=== PATIENT | male | born 1990 | race Caucasian/White ===

== ENCOUNTER 2020-10-12 23:41 | Emergency (ER) | payer MEDICARE, SELFPAY ==
[2020-10-12 23:50] VITALS: BP 139/86; PULSE 89; RESP 15; TEMP 36.4; O2SAT 98; BMI 27.3
--- NOTE | 2020-10-13 00:18 | USCV_ITS ---
Rakesh Mart Age: 30 Gender: M : 1990 Exam Date: 10/13/2020 01:20 Ordering Phys: Rohit Paulino DO Technologist: Exam Location: [facility] [place] Indication: LT LEG PAIN AND SWELING HISTORY: Lower extremity pain. History of deep venous thrombosis. PROCEDURES: Venous duplex imaging was performed in only the left lower extremity. The following venous structures were evaluated: common femoral vein, profunda vein, proximal portion of the greater saphenous vein, superficial femoral vein, and the popliteal vein. In addition, the posterior tibial and peroneal trunk were evaluated. FINDINGS: Evidence of acute partial deep vein thrombosis in the left popliteal vein with normal flow dynamics. Popliteal thrombus is mobile and partially contracted from the wall. Evidence of acute partial deep vein thrombosis in the left peroneal vein with normal flow dynamics. CONCLUSIONS Acute left lower extremity deep venous thrombosis, popliteal and peroneal veins. Dr. Judith Song DO (Electronically Signed) Final Date: 13 October 2020 07:52 S
--- NOTE | 2020-10-13 02:13 | W.ED.EXTPRO ---
HPI - Extremity Problem General: Chief complaint: Extremity Injury, Lower Stated complaint: left leg pain Time Seen by Provider: 10/13/20 01:35 History of Present Illness: HPI Narrative: Patient is a 30-year-old male comes to the ED with left calf pain. Patient has a history of DVT in right leg. Patient denies any injury or trauma to cause left calf pain. Symptoms started today. Patient says he was supposed to be on Eliquis but has stopped taking it. Denies any chest pain, shortness of breath, wheezing or hemoptysis. Associated symptoms: Deny chest pain, fever(s) or rash Review of Systems Const: Denies: fever(s), chills or fatigue Eyes: Denies: change in vision or eye discomfort ENMT: Denies: throat pain, odynophagia, nasal discharge or nasal congestion Card: Denies: chest pain, palpitations, edema, swelling of feet/ankles, dyspnea on exertion or orthopnea Resp: Denies: dyspnea, productive cough or non-productive cough GI: Denies: abdominal pain, nausea, vomiting, diarrhea, constipation or hematochezia : Denies: flank pain, difficulty urinating, dysuria or hematuria Musc: Reports: extremity pain (Left calf pain.); Denies: neck pain, back pain or extremity swelling Skin/Breast: Denies: rash or new lesions Neuro: Denies: headache(s), numbness in extremities or weakness in extremities Physical Exam Const: COMMON NORMALS: no acute distress, patient oriented x3 and alert GENERAL APPEARANCE: cooperative and comfortable HENMT: COMMON NORMALS: normocephalic HEAD & SCALP: normocephalic MOUTH: Normal oral and palatal mucosa present THROAT: posterior oropharynx normal and uvula midline Neck/C-Spine: COMMON NORMALS: supple GENERAL: Yes normal visual inspection Resp: COMMON NORMALS: normal respiratory effort, No retractions, No use of accessory muscles and clear to auscultation bilaterally AUSCULTATION: clear to auscultation bilaterally Cardio: COMMON NORMALS: regular rate, regular rhythm, S1 normal heart sound present, S2 normal heart sound present, No gallops present (Cardio), No clicks present (Cardio), No murmurs present (Cardio) and Peripheral pulses 2+ throughout RATE: regular rate RHYTHM: regular rhythm HEART SOUNDS: S1 normal heart sound present and S2 normal heart sound present PERIPHERAL PULSES: Peripheral pulses 2+ throughout GI: COMMON NORMALS: Normal to inspection, nondistended, normoactive bowel sounds present, Soft to palpation, non-tender and no masses PALPATION: Yes Soft to palpation : COMMON NORMALS: Yes no CVA tenderness BLADDER/KIDNEY EXAM: Yes no CVA tenderness Back/Pelvis: COMMON NORMALS: no CVA tenderness Extremity: COMMON NORMALS: no pedal edema GENERAL: Yes normal exam except as noted and Yes calf tenderness (left) Neuro: COMMON NORMALS: patient oriented x3 and moves all extremities SENSORIUM/ORIENTATION: Yes alert Skin: GENERAL SKIN EXAM: dry skin Course Vital Signs: Vital signs: Vital Signs Temperature 97.5 F L 10/12/20 23:50 Pulse Rate 89 10/13/20 02:49 Respiratory Rate 16 10/13/20 02:49 Blood Pressure 132/84 10/13/20 02:49 Pulse Oximetry 98 10/13/20 02:49 MDM - Extremity (Nontraumatic) MDM Narrative: Medical decision making narrative: Patient is a 30-year-old male comes to the ED with nontraumatic left calf pain. He has a history of DVT and blood clots. Denies any shortness of breath, chest pain or hemoptysis. Exam shows left calf tenderness. Ultrasound venous duplex of left lower extremity showed a DVT in the popliteal vein. Patient was given a dose of Xarelto here in the ED and sent home with a prescription for Xarelto. He was also given prescription card at discharge which will help with drugs cost. He was told to follow-up with his PCP in the next 7 to 10 days for reevaluation. Return to ED precautions given. Patient understood and agreed with plan. Imaging Data^: US Vascular: Attestation: I personally reviewed and interpreted this imaging study as follows: Radiologist's impression: Ultrasound venous duplex of left lower extremity?prelim report?DVT involving popliteal vein. Discharge Plan Discharge Patient Disposition: Home Clinical Impression: DVT (deep venous thrombosis) Qualifiers: DVT location: lower extremity Affected thrombotic vein of extremity: popliteal Chronicity: acute Laterality: left Qualified Code(s): I82.432 - Acute embolism and thrombosis of left popliteal vein Condition: Stable Prescriptions: New rivaroxaban 15 mg tablet 15 mg PO BID 21 Days Qty: 42 RF: 0 Discharge Orders: Discharge ED (Routine); Ordered 10/13/20 Ordered By: Davidson Champagne Discharge Diet: Regular Discharge Activity: Resume usual activity Patient Instructions: Deep Venous Thrombosis (ED) Activity Restrictions/Additional Instructions: Follow-up with medical provider as directed in 7 to 10 days for reevaluation and further management of blood thinner medication. Take medications as prescribed. Return to the ER or your medical provider if condition worsens. Please read and understand discharge instructions. If any questions, please ask. Coding Level of Care Code ED Case Therapist for [facility] Fwd Exam Comprehensive
[2020-10-13] MEDS: rivaroxaban 10 mg Tablet 15 MG PO (02:43)
[2020-10-13] MEDS: acetaminophen 500 mg Tablet 1000 MG PO (02:44)
[2020-10-13 02:49] VITALS: BP 132/84; PULSE 89; RESP 16; O2SAT 98
== END 2020-10-13 02:50 | disposition home or self-care (01) ==
PROVIDERS: Emergency Provider Physician Assistant
DX: I82.432 Acute embolism and thrombosis of left popliteal vein (principal)
CPT/HCPCS: 93971; 99283

== ENCOUNTER 2020-10-16 08:34 | Emergency (ER) | payer MEDICARE, SELFPAY ==
[2020-10-16 08:35] VITALS: BP 130/90; PULSE 69; RESP 17; TEMP 36.9; O2SAT 100; BMI 30.4
--- NOTE | 2020-10-16 08:44 | W.ED.CHESTPA ---
HPI - Chest Pain General: Chief Complaint: Chest Pain Stated Complaint: CHEST PAIN Time Seen by Provider: 10/16/20 08:44 History of Present Illness: HPI narrative: 30-year-old male presents to the emergency room with complaint of chest discomfort. Began having chest pain early this morning. He started to walk to the hospital he got very tired and weak and laid down in addition slept. He has previously had DVTs he was here 3 days ago venous duplex lower extremity showed a left DVT he was given a coupon for Xarelto however he has not filled it and states he lost that he has had no anticoagulants since then. States the chest discomfort is worse with palpation and with deep breathing. Patient was given a coupon for Xarelto as prescribed at his last ER visit but he states he has not taken it he lost coupon has not gotten it filled. complaint: chest pain Pertinent past history: other (DVT) Onset (ago): day(s) Timing of current episode: episodic Onset: during exertion Pain radiation: none Quality: aching Relieving factors: nothing and rest Exacerbating factors: nothing Associated symptoms: Reports dyspnea and leg edema; Deny abdominal pain, diaphoresis, fever(s), nausea, palpitations, sense of impending doom, syncope or vomiting Treatment prior to arrival: none Review of Systems Const: Denies: fever(s) or diaphoresis ENMT: Denies: throat pain, ear or mastoid pain, nasal discharge or nasal congestion Card: Denies: palpitations or syncope Resp: Reports: dyspnea GI: Denies: abdominal pain, nausea or vomiting : Denies: flank pain, dysuria, urinary frequency or urinary urgency Skin/Breast: Denies: rash or pruritus Physical Exam Const: COMMON NORMALS: no acute distress GENERAL APPEARANCE: cooperative and comfortable ORIENTATION/CONSCIOUSNESS: Yes awake, Yes oriented to person, Yes oriented to place and Yes oriented to time HENMT: COMMON NORMALS: normocephalic, atraumatic and hearing grossly normal bilaterally HEAD & SCALP: normocephalic and atraumatic Neck/C-Spine: COMMON NORMALS: no JVD Resp: COMMON NORMALS: normal respiratory effort, No retractions, No use of accessory muscles and clear to auscultation bilaterally AUSCULTATION: clear to auscultation bilaterally Cardio: COMMON NORMALS: no JVD, regular rate, regular rhythm and No murmurs present (Cardio) RATE: regular rate RHYTHM: regular rhythm GI: COMMON NORMALS: Soft to palpation and No hepatosplenomegaly present AUSCULTATION: Yes normoactive bowel sounds PALPATION: Yes Soft to palpation, No Tenderness to palpation present (GI), No Guarding due to palpation present (GI) and Yes No hepatosplenomegaly present Extremity: COMMON NORMALS: normal to inspection, capillary refill normal, no clubbing, cyanosis or edema, no calf tenderness and no pedal edema Neuro: SENSORIUM/ORIENTATION: Yes oriented to person, Yes oriented to place and Yes oriented to time Skin: COMMON NORMALS: no rashes or lesions noted GENERAL SKIN EXAM: no rashes or lesions noted Course Vital Signs: Vital signs: Vital Signs Temperature 98.5 F 10/16/20 08:35 Pulse Rate 72 10/16/20 10:57 Respiratory Rate 12 10/16/20 10:57 Blood Pressure 115/69 10/16/20 10:57 Pulse Oximetry 98 10/16/20 10:57 MDM - Chest Pain MDM Narrative: Medical decision making narrative: No PE. Gave him another coupon for Eliquis this time discussed the importance of getting this filled and taking it did give him a dose of Lovenox here in the ER. Lab Data: Labs: Lab Results 10/16/20 10/16/20 Range/Units 09:15 09:15 WBC 10.6 H (4.0-10.0) 10^3/ uL RBC 4.93 (4.1-5.3) 10^6/u L Hgb 16.2 (11.7-16.6) g/dL Hct 48.4 (42.0-52.0) % MCV 98.2 H (80-94) fL MCH 32.9 (28.0-34.0) pg MCHC 33.5 (30.0-36.0) g/dL RDW 12.4 (12.1-15.1) % Plt Count 237 (130-400) 10^3/c mm MPV 11.5 H (7.4-10.4) fL Neut % (Auto) 63.1 % Lymph % (Auto) 21.5 % [place] % (Auto) 6.8 % Eos % (Auto) 7.0 % Baso % (Auto) 1.3 % Neut # (Auto) 6.70 (1.8-7.7) 10^3/u L Lymph # (Auto) 2.3 (0.8-4.8) 10^3/u L [place] # (Auto) 0.7 (0.2-0.9) 10^3/u L Eos # (Auto) 0.7 (0.0-0.8) 10^3/u L Baso # (Auto) 0.1 (0.0-0.1) 10^3/u L Nucleated RBC % (a uto) 0 % Nucleated RBCs # 0.0 /100WBC Sodium 143 (136-145) mmol/L Potassium 4.1 (3.5-5.1) mmol/L Chloride 105 (98-107) mmol/L Carbon Dioxide 26 (22-29) mmol/L Anion Gap 16.1 (5-19) BUN 9 (6-20) mg/dL Creatinine 0.8 (0.7-1.2) mg/dL GFR Calculation 114.3 (90-130) mL/min Glucose 100 (65-115) mg/dL Calculated Osmolal ity 295 (285-295) mOsm/k g Calcium 8.7 (8.5-10.5) mg/dL Total Bilirubin 0.3 (0.15-1.2) mg/dL AST 18 (0-40) U/L ALT 25 (0-41) U/L Alkaline Phosphata se 74 (40-130) IU/L Total Protein 7.3 (6.6-8.7) g/dL Albumin 5.1 (3.5-5.2) g/dL Globulin 2.2 (1.3-4.6) g/dL Discharge Plan Discharge Patient Disposition: Home Clinical Impression: DVT (deep venous thrombosis) Condition: Stable Prescriptions: New Eliquis DVT-PE Treat 30D Start 5 mg (74 tabs) tablets,dose pack See Rx Instructions .ROUTE .COMPLEX Qty: 74 RF: 0 Discontinued rivaroxaban 15 mg tablet 15 mg PO BID 21 Days Qty: 42 RF: 0 Discharge Orders: Discharge ED (Routine); Ordered 10/16/20 Ordered By: Alessandro Sargent Patient Instructions: Opioid Safety Coding Level of Care Code ED Clinical Psychology Professor for [facility] Nathalia
[2020-10-16 08:53] VITALS: BP 130/90; PULSE 73; RESP 18; O2SAT 98
--- NOTE | 2020-10-16 09:13 | CT_ITS ---
WS: [id number] CT CHEST ANGIOGRAPHY WITH REFORMATS HISTORY: DVT, chest pain TECHNIQUE: Contiguous axial images are obtained through the chest during arterial injection of intrav enous contrast. Images are reconstructed to evaluate the pulmonary arteries. MIP imaging also reviewe d. All CT scans at [facility] use at least one of these dose optimization techniques: aut omated exposure control; mA and/or kV adjustment per patient size (includes targeted exams where dose is matched to clinical indication); or iterative reconstruction. CONTRAST: Omnipaque 350; 95 mL IV. DLP: 638.1 mGy.cm COMPARISON: None available. Very good opacification of the pulmonary arteries. Pulmonary artery is slightly enlarged. No filling defects or pulmonary emboli are identified. Normal-sized thoracic aorta. Heart size is normal. No per icardial or pleural effusions. Lungs are clear. No pneumonia. No mediastinal or hilar adenopathy. Lar gest lymph node measures 9 mm at the RIGHT hilum. Mild diffuse hepatic steatosis with focal fatty sparing along the falciform ligament. Liver appears s lightly enlarged but incompletely visualized on this CT evaluation. No adrenal mass. Gallbladder is s lightly contracted. CT/CT angio chest PE protcl [id number] IMPRESSION: 1. No pulmonary embolism. 2. Normal size heart. 3. No pneumonia. 4. Hepatic steatosis.
--- NOTE | 2020-10-16 09:14 | XR_ITS ---
WS: [id number] Portable AP upright chest, 10/16/2020 Clinical Data: dyspnea/cough Comparison: PA and lateral chest 02/07/2017. Findings: No nodules, masses or effusions are seen. The heart is normal. The pulmonary vascularity is not increased. No pneumonia or pneumothorax is seen. XR/XR chest 1V portable [id number] Impression: Negative chest.
--- NOTE | 2020-10-16 09:14 | ECG_ITS ---
[facility] Test Date: 2020-10-16 Pat Name: Rakesh Mart Department: Room: Gender: Male Lead Scientist: : 1990 Requested By: Alessandro Lyons Order Number: [id number] Radha MD: BRITTANIE MENDOZA Measurements Intervals Star Rate: 69 P: 47 AK: 148 QRS: -24 QRSD: 114 T: -4 QT: 361 QTc: 389 Interpretive Statements SINUS RHYTHM BORDERLINE LEFT AXIS DEVIATION [QRS AXIS < -20] MODERATE INTRAVENTRICULAR CONDUCTION DELAY [110+ ms QRS DURATION] MINIMAL VOLTAGE CRITERIA FOR LVH, CONSIDER NORMAL VARIANT [MEETS CRITERIA IN ONE OF: R(aVL), S(V1), R(V5), R(V5/V6)+S(V1)] NONSPECIFIC ST ELEVATION [0.05+ mV ST ELEVATION] Compared to ECG 10/28/2017 19:23:42 Intraventricular conduction delay now present ST (T wave) deviation now present Electronically Signed On 10-16-2020 20:42:19 CDT by BRITTANIE MENDOZA [email or web address]
[2020-10-16 09:22] LABS: Basophils # 0.1 10^3/uL (0.0-0.1); Basophils % 1.3 %; Eosinophils # 0.7 10^3/uL (0.0-0.8); Hematocrit 48.4 % (42.0-52.0); Hemoglobin 16.2 g/dL (11.7-16.6); Lymphocytes # 2.3 10^3/uL (0.8-4.8); Lymphocytes % 21.5 %; Mean Corpuscular HGB Conc 33.5 g/dL (30.0-36.0); Mean Corpuscular Hemoglobin 32.9 pg (28.0-34.0); Mean Corpuscular Volume 98.2 fL (80-94); Mean Platelet Volume 11.5 fL (7.4-10.4); Monocytes # 0.7 10^3/uL (0.2-0.9); Monocytes % 6.8 %; Neutrophils % 63.1 %; Nucleated Red Blood Cells % 0 %; Platelet Count 237 10^3/cmm (130-400); Red Blood Count 4.93 10^6/uL (4.1-5.3); Red Cell Distribution Width 12.4 % (12.1-15.1); White Blood Count 10.6 10^3/uL (4.0-10.0)
[2020-10-16] MEDS: enoxaparin 100 mg/mL Syringe 90 MG SUBCUT (09:26)
[2020-10-16 09:30] LABS: Alanine Aminotransferase 25 U/L (0-41); Albumin Level 5.1 g/dL (3.5-5.2); Alkaline Phosphatase 74 IU/L (40-130); Anion Gap 16.1 (5-19); Aspartate Amino Transferase 18 U/L (0-40); Blood Urea Nitrogen 9 mg/dL (6-20); Calcium 8.7 mg/dL (8.5-10.5); Carbon Dioxide 26 mmol/L (22-29); Chloride 105 mmol/L (98-107); Globulin 2.2 g/dL (1.3-4.6); Glomerular Filtration Rate 114.3 mL/min (90-130); Glucose 100 mg/dL (65-115); Osmolality Calculated 295 mOsm/kg (285-295); Potassium 4.1 mmol/L (3.5-5.1); Sodium 143 mmol/L (136-145); Total Bilirubin 0.3 mg/dL (0.15-1.2); Total Protein 7.3 g/dL (6.6-8.7)
[2020-10-16] MEDS: iohexol 350 mg/mL 100 mL Btl IV (09:34)
[2020-10-16 10:44] VITALS: BP 123/68; PULSE 69; PULSE 70; RESP 17; O2SAT 98
[2020-10-16 10:57] VITALS: BP 115/69; PULSE 72; RESP 12; O2SAT 98
--- NOTE | 2020-10-20 12:14 | DCPLANNER ---
campaign marketing manager had message to speak with patient about getting established with a primary care physician. campaign marketing manager called patient, he stated that he would like help in getting established with a primary care physician. campaign marketing manager called [facility], spoke with Sunita, a follow up appointment was scheduled for November at 11:[address] Larose. campaign marketing manager called patient and gave patient the appointment information. campaign marketing manager did inform patient that the clinic would send patient a letter in the mail with appointment information, and patient will need to call the clinic to confirm appointment.
--- NOTE | 2021-01-19 07:47 | DCPLANNER ---
Patient had a follow up appointment scheduled with Dr. Rausch at [facility] - patient did attend appointment.
== END 2020-10-16 10:58 | disposition home or self-care (01) ==
PROVIDERS: Emergency Provider Family Medicine
DX: I82.402 Acute embolism and thrombosis of unspecified deep veins of left lower extremity (principal)
CPT/HCPCS: 71045; 71275; 80053; 85025; 93005; 96372; 99284; J1650; Q9967

== ENCOUNTER 2020-10-17 22:23 | Observation (INO) | payer MEDICARE, SELFPAY ==
[2020-10-17 22:27] VITALS: BP 145/89; PULSE 100; RESP 18; TEMP 36.8; O2SAT 98; BMI 30.4
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
[2020-10-17 23:13] LABS: Basophils # 0.1 10^3/uL (0.0-0.1); Basophils % 1.3 %; Eosinophils # 0.6 10^3/uL (0.0-0.8); Hematocrit 42.1 % (42.0-52.0); Hemoglobin 14.2 g/dL (11.7-16.6); Lymphocytes # 1.9 10^3/uL (0.8-4.8); Lymphocytes % 23.8 %; Mean Corpuscular HGB Conc 33.7 g/dL (30.0-36.0); Mean Corpuscular Hemoglobin 32.5 pg (28.0-34.0); Mean Corpuscular Volume 96.3 fL (80-94); Mean Platelet Volume 10.8 fL (7.4-10.4); Monocytes # 0.7 10^3/uL (0.2-0.9); Monocytes % 9.2 %; Neutrophils # 4.65 10^3/uL (1.8-7.7); Neutrophils % 58.3 %; Nucleated Red Blood Cells % 0 %; Platelet Count 227 10^3/cmm (130-400); Red Blood Count 4.37 10^6/uL (4.1-5.3); Red Cell Distribution Width 12.2 % (12.1-15.1)
[2020-10-17 23:22] LABS: Amphetamines Screen Urine Negative (Negative); Barbiturates Screen Urine Negative (Negative); Benzodiazepines Screen Urine Negative (Negative); Cocaine Screen Urine Negative (Negative); Opiate Screen Urine Negative (Negative); PCP Screen Urine Negative (Negative); THC Screen Urine Positive (Negative)
[2020-10-17 23:26] LABS: Alanine Aminotransferase 22 U/L (0-41); Albumin Level 4.6 g/dL (3.5-5.2); Alkaline Phosphatase 67 IU/L (40-130); Anion Gap 14.7 (5-19); Aspartate Amino Transferase 17 U/L (0-40); Blood Urea Nitrogen 14 mg/dL (6-20); Calcium 8.8 mg/dL (8.5-10.5); Carbon Dioxide 23 mmol/L (22-29); Chloride 108 mmol/L (98-107); Globulin 2.3 g/dL (1.3-4.6); Glomerular Filtration Rate 114.3 mL/min (90-130); Glucose 98 mg/dL (65-115); Osmolality Calculated 294 mOsm/kg (285-295); Potassium 3.7 mmol/L (3.5-5.1); Sodium 142 mmol/L (136-145); Total Bilirubin 0.2 mg/dL (0.15-1.2); Total Protein 6.9 g/dL (6.6-8.7)
[2020-10-17 23:30] LABS: Acetaminophen < 5.0 ug/mL (10-30); Alcohol Level < 10 mg/dL (0-10); Salicylate < 0.3 mg/dL (3-10)
[2020-10-17 23:46] LABS: INR 0.99 (0.8-1.2)
--- NOTE | 2020-10-18 00:09 | PC.NURSE ---
report called to Collette TAYLOR in NPU unit
[2020-10-18 00:37] VITALS: BP 155/114; PULSE 83; RESP 17; TEMP 36.5; O2SAT 95
[2020-10-18] MEDS: trazodone 50 mg Tablet PO (01:18)
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
[2020-10-18 06:00] VITALS: BP 106/59; PULSE 69; RESP 17; TEMP 36.7; O2SAT 96
[2020-10-18] MEDS: apixaban 5 mg Tablet 10 MG PO (08:47)
--- NOTE | 2020-10-18 09:37 | P.SS_ITS ---
Short Stay Summary Providers Date of Admit/Discharge: 10/18/20 Attending Provider: Kim Villatoro DO Chief Complaint: HI, SI HPI History of Present Illness Rakesh Mart is a 30 year old male with no reported psych history presented to the emergency department stating that he had got into an argument with his friend and did not have a place to stay and was walking down the road and became homicidal and suicidal stating that he was going to hurt his roommate. When evaluated emergency department patient stated that he had no intent or plan of harming his roommate or harming himself but needed a place to stay. Patient was telepsych at which time he was disposition to be admitted for observation. Patient is denying any mood symptoms denying any recent depressive symptoms, states that he got mad at his roommate and made a homicidal statement but left and said he had no intentions of harming his roommate. When asked about self- harm, patient stated he has no history of suicide attempts and had no intent of harming himself either but was upset and feels better today and states that he would like to leave today because he has work at 2 PM. Discussed with patient that it is inappropriate to utilize an acute mental health care facility for a place to say and that it is an appropriate to make statements that he is going to harm others or himself in order to gain admission. Psychiatric review of systems is otherwise negative. Review of Systems General: Reports: 10 or more systems reviewed and unremarkable except in HPI and below Home Meds/Allergies Home Medications and Allergies Allergies Allergy/AdvReac Type Severity Reaction Status Date / Time No Known Allergies Allergy Verified 10/16/20 08:44 Vitals/I&O/Wt Last Vital Signs Temp 98.0 F 10/18/20 06:00 Pulse 69 10/18/20 06:00 Resp 17 10/18/20 06:00 BP 106/59 10/18/20 06:00 Pulse Ox 96 10/18/20 06:00 Weight last 48 hrs Weight 90.718 kg Physical Exam Narrative: EXAM NARRATIVE: MSE: Appears older than stated age, disheveled, unkempt, bearded, wearing hospital scrubs, good eye contact Psychomotor activity is neither increased nor decreased, no agitation Speech is normal rate and volume, spontaneous, clear articulation, not pressured I feel okay, full range, not labile Alert and oriented to person, place, time, situation Memory and concentration appear to be intact per interview Intellectual functioning appears to be average at best based on vocabulary, interview Thought process, linear, no flight of ideas, no looseness of association Thought content, no delusions, no hallucinations, no suicidal or homicidal ideation Insight and judgment appear to be fair to intact Hospital Course Hospital Course Patient's examination and evaluation emergency department were unremarkable. Patient was seen by telepsych and admitted for observation. Patient's chart was reviewed to include recent hospital encounter in which she was treated for DVT. Patient states that he was never homicidal or suicidal but merely wanted to gain admission because he had no place to stay. He denies any past psychiatric history and denies any recent psychiatric symptoms and denies any current psychiatric symptoms denying any suicidal homicidal ideation and states that he never had any true intent of harming himself or anyone else. Low to moderate risk of harm to self or others although patient appears to make poor decisions and his risk would be elevated if he continues to demonstrate poor decision making, especially if he is under the influence of alcohol or any substances which can lead to unexpected, impulsive behavior. Patient has no current indication for emergent or acute psychiatric treatment, nor other any current indications for referral for outpatient mental health care. Diagnoses at Discharge Discharge Diagnosis (1) Malingering: Status: Acute Discharge Plan Discharge Patient Disposition: Home Condition: Stable Prescriptions: Continued Eliquis DVT-PE Treat 30D Start 5 mg (74 tabs) tablets,dose pack See Rx Instructions .ROUTE .COMPLEX Qty: 74 RF: 0 Discharge Orders: Discharge Order (Routine); Ordered 10/18/20 Ordered By: Kim Villatoro Discharge Diet: Regular Discharge Activity: Resume usual activity Patient Instructions: Opioid Safety Attestations Medical Necessity Statement*: Patient was malingering, there are no current indications for emergent or acute psychiatric treatment. Time Spent in Patient Care*: greater than 30 min Status at Discharge: Cognitive status at discharge: cognitively intact , Behavioral status at discharge: cooperative , Functional status at discharge: independent ambulation Overall status at discharge: patient is back to baseline Quality Metrics Clinical Quality Measures: During this hospital stay, did patient experience: None Coding Level of Care Code Acute Health Record Technician for Halle Sloan Diagnoses Malingering Z76.5
[2020-10-18 10:02] VITALS: BP 106/59; PULSE 69; RESP 17; TEMP 36.7; O2SAT 96
== END 2020-10-18 10:57 | disposition home or self-care (01) ==
LOC: ER 23:37 → NP 10-18
PROVIDERS: Admitting Provider Psychiatry & Neurology Psychiatry; Emergency Provider Emergency Medicine; Visit Provider Psychiatry & Neurology Psychiatry
DX: Z76.5 Malingerer [conscious simulation] (principal)
CPT/HCPCS: 80053; 80306; 80307; 85025; 85610; 99285; G0378

== ENCOUNTER 2020-10-24 12:41 | Emergency (ER) | payer MEDICARE, SELFPAY ==
[2020-10-24 12:51] VITALS: BP 133/81; PULSE 92; RESP 18; TEMP 37.1; O2SAT 97; BMI 28.1
--- NOTE | 2020-10-24 12:58 | XR_ITS ---
WS: [id number] Right knee, 3 views, 10/24/2020 Clinical Data: rt knee pain Comparison: None. Findings: No fractures or dislocations are seen. The joint spaces are normal. The patella is intact. The soft t issues are unremarkable. XR/XR knee RT 3V* [id number] Impression: Negative right knee.
--- NOTE | 2020-10-24 14:08 | W.ED.EXTPRO ---
HPI - Extremity Problem General: Chief complaint: Extremity Injury, Lower Stated complaint: knee pain Time Seen by Provider: 10/24/20 12:59 Source: patient Mode of arrival: ambulatory Limitations: no limitations History of Present Illness: MD Complaint: extremity pain and extremity swelling Location: right and upper extremity Quality: aching Relieving factors: immobilization and rest Exacerbating factors: walking Associated symptoms: Deny chest pain, fever(s) or rash Review of Systems General: Reports: 10 or more systems reviewed and unremarkable except in HPI and below Const: Denies: fever(s), chills or diaphoresis Eyes: Denies: blurry vision or eye redness ENMT: Denies: throat pain, dental pain or disequilibrium Card: Denies: chest pain, palpitations or irregular heart rhythm Resp: Denies: dyspnea, productive cough, non-productive cough or wheezing GI: Denies: abdominal pain, nausea or vomiting : Denies: dysuria Musc: Reports: joint pain; Denies: neck pain or back pain Skin/Breast: Denies: rash or pruritus Neuro: Denies: headache(s), weakness in extremities or behavioral changes Psych: Denies: anxiety or depression Satish/Lymph: Denies: easy bruising Physical Exam Const: COMMON NORMALS: no acute distress, patient oriented x3, healthy appearing and alert GENERAL APPEARANCE: cooperative, comfortable and well hydrated HENMT: COMMON NORMALS: normocephalic, Normal external nose present and moist oral mucous membranes HEAD & SCALP: normocephalic NOSE: Normal external nose present Eye: COMMON NORMALS: Equal, round and reactive pupils present and EOMs intact bilaterally GENERAL EYE: appearance normal, both eyes and all related structures PUPIL: Yes Equal, round and reactive pupils present Neck/C-Spine: COMMON NORMALS: full ROM and no lymphadenopathy GENERAL: Yes normal visual inspection and Yes trachea midline CERVICAL SPINE: Yes cervical ROM normal Lymph: LYMPHATIC: no lymphadenopathy noted Chest: COMMONS NORMALS: normal inspection of the chest Resp: COMMON NORMALS: normal respiratory effort and clear to auscultation bilaterally AUSCULTATION: clear to auscultation bilaterally Cardio: COMMON NORMALS: regular rhythm, S1 normal heart sound present and S2 normal heart sound present RHYTHM: regular rhythm HEART SOUNDS: S1 normal heart sound present and S2 normal heart sound present GI: COMMON NORMALS: Soft to palpation and non-tender INSPECTION: Yes normal to inspection PALPATION: Yes Soft to palpation : COMMON NORMALS: Yes no CVA tenderness BLADDER/KIDNEY EXAM: Yes no CVA tenderness Back/Pelvis: COMMON NORMALS: no CVA tenderness and thoracic and lumbar spine normal to inspection Extremity: COMMON NORMALS: normal to inspection, capillary refill normal and no pedal edema GENERAL: Yes normal exam except as noted RIGHT LOWER EXTREMITY: Yes knee joint Right knee: Yes inspection (Effusion present, small, swelling noted anteriorly, no erythema), Yes palpation (Pain with movement of the patella and medial cruciate ligament), Yes ROM and Yes neurovascular exam (Distally intact) Neuro: COMMON NORMALS: patient oriented x3 and no focal motor deficits SENSORIUM/ORIENTATION: Yes alert Psych: COMMON NORMALS: mental status grossly normal, Normal thought process present and cooperative ACTIVITY/MOTOR BEHAVIOR: Yes appropriate eye contact THOUGHT PROCESS: Normal thought process present Skin: COMMON NORMALS: no rashes or lesions noted and turgor normal GENERAL SKIN EXAM: no rashes or lesions noted and turgor normal Course Vital Signs: Vital signs: Vital Signs Temperature 98.7 F 10/24/20 12:51 Pulse Rate 98 10/24/20 15:07 Respiratory Rate 18 10/24/20 15:07 Blood Pressure 134/84 10/24/20 15:07 Pulse Oximetry 98 10/24/20 15:07 MDM - Extremity (Nontraumatic) Imaging Data^: Xray Ortho: Radiologist's impression: Negative right knee Discharge Plan Discharge Patient Disposition: Home Clinical Impression: Knee effusion Qualifiers: Laterality: right Qualified Code(s): M25.461 - Effusion, right knee Acute knee pain Qualifiers: Laterality: right Qualified Code(s): M25.561 - Pain in right knee Condition: Stable Prescriptions: No Action Eliquis DVT-PE Treat 30D Start 5 mg (74 tabs) tablets,dose pack See Rx Instructions .ROUTE .COMPLEX Qty: 74 RF: 0 Discharge Orders: Discharge ED (Routine); Ordered 10/24/20 Ordered By: Pauline Oliveira Discharge Diet: Usual diet Discharge Activity: Limit activity as instructed Patient Instructions: Knee Sprain (ED), Crutch Instructions (ED), Knee Pain (ED), Knee Immobilizer (ED), Opioid Safety Activity Restrictions/Additional Instructions: Take Tylenol [id number] as directed on bottle Follow-up with your primary care provider next week without fail for knee pain Keep the knee elevated with cool compresses to help with swelling and pain Return to the emergency department if you develop redness swelling or increased pain of the right leg. 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
[2020-10-24 15:07] VITALS: BP 134/84; PULSE 98; RESP 18; O2SAT 98
--- NOTE | 2020-11-03 07:32 | P.CONIM_ITS ---
Providers/Reason for Consult Consulting Physican/Specialty*: Kai James MD. Psychiatry. Reason for Consult*: Evaluation for safety for discharge. Requesting Physcian: Pauline Oliver Psych Consult HPI History of Present Illness Rakehs Mart is a 30 year old male who presented to the emergency department the following report: Vitals/I&O/Wt Last Vital Signs Temp 98.7 F 10/24/20 12:51 Pulse 98 10/24/20 15:07 Resp 18 10/24/20 15:07 BP 134/84 10/24/20 15:07 Pulse Ox 98 10/24/20 15:07 Involuntary Hold Information 96 Hour Hold: 96 Hour Involuntary Admission: No Coding Level of Care Code Acute Senior Solutions Architect for Halle Sloan
== END 2020-10-24 15:08 | disposition home or self-care (01) ==
PROVIDERS: Emergency Provider Nurse Practitioner Family
DX: M25.461 Effusion, right knee (principal); Z79.01 Long term (current) use of anticoagulants
CPT/HCPCS: 29530; 73562; 99283; 99291; E0114

== ENCOUNTER 2020-10-28 00:35 | Emergency (ER) | payer MEDICARE, SELFPAY ==
[2020-10-28 00:40] VITALS: BP 140/94; PULSE 104; RESP 18; TEMP 36.4; O2SAT 97; BMI 28.1
--- NOTE | 2020-10-28 01:26 | W.ED.GENADLT ---
HPI - General Adult General: Chief complaint: General Medical Stated complaint: KNEE PAIN Time Seen by Provider: 10/28/20 01:08 History of Present Illness: HPI narrative: Patient complains about ongoing knee pain. Is not been wearing knee immobilizer properly. Has not followed primary care provider. Is able to ambulate. Patient says he originally hurt it when he got out of a car and heard a pop in his knee. Has hurt since then. complaint: Knee pain Onset (ago): week(s) Location: right and lower extremity Severity: mild Severity scale (1-10): 2 Quality: aching Pain Consistency: intermittent Relieving factors: immobilization Exacerbating factors: movement Associated symptoms: Reports no associated symptoms; Deny chest pain, dyspnea, headache(s), nausea, rash or vomiting Treatments prior to arrival: none Review of Systems Const: Denies: fever(s), chills or body aches Eyes: Denies: change in vision or blurry vision ENMT: Denies: throat pain or nasal congestion Card: Denies: chest pain or dyspnea on exertion Resp: Denies: dyspnea, productive cough or non-productive cough GI: Denies: abdominal pain, nausea or vomiting : Denies: difficulty urinating Musc: Reports: joint pain (Right knee), joint swelling and limited range of motion; Denies: extremity pain, joint warmth or joint stiffness Skin/Breast: Denies: rash Neuro: Denies: headache(s) Psych: Denies: anxiety or depression Satish/Lymph: Denies: easy bruising Physical Exam Const: COMMON NORMALS: no acute distress Extremity: RIGHT LOWER EXTREMITY: Yes knee joint (Minimal swelling to the knee. Tenderness throughout, more dramatic) Right knee: Yes palpation, Yes ROM (Full) and Yes neurovascular exam (Intact) Course Vital Signs: Vital signs: Vital Signs Temperature 97.6 F 10/28/20 00:40 Pulse Rate 104 H 10/28/20 00:40 Respiratory Rate 18 10/28/20 00:40 Blood Pressure 140/94 10/28/20 00:40 Pulse Oximetry 97 10/28/20 00:40 Discharge Plan Discharge Patient Disposition: Home Clinical Impression: Knee pain Qualifiers: Chronicity: acute Laterality: right Qualified Code(s): M25.561 - Pain in right knee Condition: Stable Prescriptions: New Voltaren 1 % gel 4 g topical QID Qty: 100 RF: 0 No Action Eliquis DVT-PE Treat 30D Start 5 mg (74 tabs) tablets,dose pack See Rx Instructions .ROUTE .COMPLEX Qty: 74 RF: 0 Discharge Orders: Discharge ED (Routine); Ordered 10/28/20 Ordered By: Taurus Quintanilla Discharge Diet: Usual diet Discharge Activity: Increase activity as tolerated Activity Restrictions/Additional Instructions: Follow-up with Dr. Larose no significant improvement. Apply ice to the knee as needed. Take medication as directed. Coding Level of Care Code ED Director Of Digital Marketing for Halle Sloan
[2020-10-28] MEDS: CELEcoxib 200 mg Capsule 400 MG PO (01:31)
[2020-10-28 01:45] VITALS: PULSE 72; RESP 18; O2SAT 99
== END 2020-10-28 01:46 | disposition home or self-care (01) ==
PROVIDERS: Emergency Provider Nurse Practitioner Family
DX: M25.561 Pain in right knee (principal)
CPT/HCPCS: 99283

== ENCOUNTER 2020-10-28 03:35 | Emergency (ER) | payer MEDICARE, SELFPAY ==
[2020-10-28 03:40] VITALS: RESP 18; TEMP 36.4; O2SAT 100; BMI 27.3
--- NOTE | 2020-10-28 03:45 | W.ED.PSYCH ---
HPI - Psych General: Chief Complaint: Psychiatric Symptoms Stated Complaint: SI Time Seen by Provider: 10/28/20 03:39 Source: patient Mode of arrival: ambulatory Limitations: no limitations History of Present Illness: HPI Narrative: 30-year-old male states that he has been increasingly depressed and had suicidal thoughts after leaving the hospital today. States he had thoughts of jumping in front of a car. Patient was admitted here 11 days ago for same. He denies any worsening improving factors. Denies any recent drug use. MD complaint: suicidal ideation Associated symptoms: Reports suicidal ideation Review of Systems Const: Denies: fever(s), chills, body aches or change in appetite Eyes: Denies: blurry vision or eye discomfort ENMT: Denies: throat pain or dental pain Card: Denies: chest pain Resp: Denies: dyspnea GI: Denies: abdominal pain, nausea, vomiting or diarrhea : Denies: dysuria Musc: Denies: neck pain or back pain Skin/Breast: Denies: rash Neuro: Denies: headache(s) Psych: Reports: suicidal ideation Satish/Lymph: Denies: easy bruising All/Imm: Denies: urticaria Physical Exam Const: COMMON NORMALS: no acute distress, patient oriented x3 and healthy appearing HENMT: COMMON NORMALS: normocephalic and atraumatic HEAD & SCALP: normocephalic and atraumatic Eye: COMMON NORMALS: Equal, round and reactive pupils present and EOMs intact bilaterally PUPIL: Yes Equal, round and reactive pupils present Neck/C-Spine: COMMON NORMALS: full ROM and supple Chest: COMMONS NORMALS: normal inspection of the chest and normal palpation of entire chest wall Resp: COMMON NORMALS: normal respiratory effort, No retractions, No use of accessory muscles and clear to auscultation bilaterally AUSCULTATION: clear to auscultation bilaterally Cardio: COMMON NORMALS: regular rate, regular rhythm and No murmurs present (Cardio) RATE: regular rate RHYTHM: regular rhythm GI: COMMON NORMALS: Normal to inspection, nondistended, normoactive bowel sounds present, Soft to palpation, non-tender and no masses PALPATION: Yes Soft to palpation Extremity: COMMON NORMALS: normal to inspection and full ROM Neuro: COMMON NORMALS: patient oriented x3, moves all extremities and no focal motor deficits Psych: COMMON NORMALS: mental status grossly normal, Normal thought process present and cooperative THOUGHT PROCESS: Normal thought process present THOUGHT CONTENT: Yes Suicidality present Skin: COMMON NORMALS: no rashes or lesions noted and no wounds GENERAL SKIN EXAM: no rashes or lesions noted Course Vital Signs: Vital signs: Vital Signs Temperature 97.6 F 10/28/20 03:40 Pulse Rate 88 10/28/20 04:10 Respiratory Rate 16 10/28/20 04:10 Pulse Oximetry 99 10/28/20 04:10 MDM - Psych MDM Narrative: Medical decision making narrative: Patient presents here with depression. I spoke to Dr. James this patient was admitted a week ago was found to be malingering looking for a place to stay. Dr. James spoke to patient and does not believe that he is a threat to himself or others and recommended discharge. I feel patient is not imminent threat to himself either. Patient is discharged and return if worsening. Discharge Plan Discharge Patient Disposition: Home Clinical Impression: Depression Qualifiers: Depression Type: unspecified Qualified Code(s): F32.9 - Major depressive disorder, single episode, unspecified Condition: Stable Prescriptions: No Action Eliquis DVT-PE Treat 30D Start 5 mg (74 tabs) tablets,dose pack See Rx Instructions .ROUTE .COMPLEX Qty: 74 RF: 0 Voltaren 1 % gel 4 g topical QID Qty: 100 RF: 0 Discharge Orders: Discharge ED (Routine); Ordered 10/28/20 Ordered By: Sobia Daily Discharge Diet: Advance as tolerated Discharge Activity: Resume usual activity Patient Instructions: Depression (ED) Coding Level of Care Code ED Fish Cutting Machine Operator for Halle Fwpaulino Exam Comprehensive
--- NOTE | 2020-10-28 03:55 | P.CONIM_ITS ---
Providers/Reason for Consult Consulting Physican/Specialty*: Kai James MD. Psychiatry. Reason for Consult*: Evaluation for appropriateness for admission and safety for discharge. Requesting Physcian: Sobia Daily Psych Consult HPI History of Present Illness Rakesh Mart is a 30 year old male who presented to the emergency department with the following report: Chief Complaint: Psychiatric Symptoms Stated Complaint: SI Time Seen by Provider: 10/28/20 03:39 Source: patient Mode of arrival: ambulatory Limitations: no limitations History of Present Illness: HPI Narrative: 30-year-old male states that he has been increasingly depressed and had suicidal thoughts after leaving the hospital today. States he had thoughts of jumping in front of a car. Patient was admitted here 11 days ago for same. He denies any worsening improving factors. Denies any recent drug use. MD complaint: suicidal ideation Associated symptoms: Reports suicidal ideation. A psychiatric evaluation was requested for to determine disposition. Isabela presented to the emergency department most likely. A week and a half ago. He was admitted under observation and according to the note very quickly requested to discharge AMA without any true interventions or referrals. Concerns for malingering existed when he was admitted under observation and presents today with the same report clearly having some psychosocial challenges, not having resources or place to go. He denied any substantive changes since his last hospitalization and we discussed the importance of him following up with resources so that he does not have these crises. We discussed the fact that we are unable to admit secondary to not having a place to go and there are many things that the outpatient services could assist with. We discussed the risk benefits and alternatives of admission versus discharge to home and he understood and agreed to proceed as is documented in this note. An excerpt from his last inpatient encounter is included below for context. Per his 10/18/2020 [facility] inpatient evaluation: History of Present Illness Rakesh Mart is a 30 year old male with no reported psych history presented to the emergency department stating that he had got into an argument with his friend and did not have a place to stay and was walking down the road and became homicidal and suicidal stating that he was going to hurt his roommate. When evaluated emergency department patient stated that he had no intent or plan of harming his roommate or harming himself but needed a place to stay. Patient was telepsych at which time he was disposition to be admitted for observation. Patient is denying any mood symptoms denying any recent depressive symptoms, states that he got mad at his roommate and made a homicidal statement but left and said he had no intentions of harming his roommate. When asked about self- harm, patient stated he has no history of suicide attempts and had no intent of harming himself either but was upset and feels better today and states that he would like to leave today because he has work at 2 PM. Discussed with patient that it is inappropriate to utilize an acute mental health care facility for a place to say and that it is an appropriate to make statements that he is going to harm others or himself in order to gain admission. Psychiatric review of systems is otherwise negative. Mental Status Exam MSE Comments: This is an overweight versus obese white male in hospital scrubs with limited grooming and eye contact. No abnormal movements except for psychomotor retardation. Cooperative with exam in mild distress. Speech was decreased rate and volume. Mood described as depressed, affect subdued. Thought process organized. Thought content: Patient endorsed suicidality but denied homicidality, endorsed some paranoia, but no delusions he was noted, he was ambivalent about auditory and visual hallucinations, and he did not appear to be attending to internal stimuli. Attention and concentration were limited and memory was somewhat unreliable but none were formally tested. He is alert and oriented 3. Insight and judgment are impaired, impulse control is limited. Vitals/I&O/Wt Last Vital Signs Temp 97.6 F 10/28/20 03:40 Pulse 88 10/28/20 04:10 Resp 16 10/28/20 04:10 Pulse Ox 99 10/28/20 04:10 A&P Assessment and plan (1) Depression: Status: Acute Qualifiers: Depression Type: unspecified Qualified Code(s): F32.9 - Major depressive disorder, single episode, unspecified (2) Suicidal ideation: Status: Acute (3) Polysubstance abuse: Status: Acute (4) Malingering: Status: Acute Additional A&P Information This is a 30-year-old white male with history of mental health and addiction issues who presents again at rehab times in the past few weeks reporting suicidality again but with clear indications of malingering specifically for having a place to stay. With no signs of active mental health challenges. 1. Patient advised to follow-up with outpatient services. 2. No signs of credible lethality noted to discharge is appropriate. 3. Patient made aware of community resources and advised to follow-up with them before his next crisis. Involuntary Hold Information 96 Hour Hold: 96 Hour Involuntary Admission: No Attestations [facility] Medical Necessity Statement*: N/A. Please see primary team note for full details. Coding Level of Care Code Acute Aids Counselor for Aries Fwd Diagnoses Depression F32.9 Depression Type: unspecified Suicidal ideation R45.851 Polysubstance abuse F19.10 Malingering Z76.5
[2020-10-28 04:10] VITALS: PULSE 88; RESP 16; O2SAT 99
== END 2020-10-28 04:11 | disposition home or self-care (01) ==
PROVIDERS: Emergency Provider Emergency Medicine
DX: F32.9 Major depressive disorder, single episode, unspecified (principal); Z79.01 Long term (current) use of anticoagulants
CPT/HCPCS: 99283

== ENCOUNTER 2020-11-02 18:56 | Inpatient (IN) | payer MEDICARE, SELFPAY ==
[2020-11-02 18:59] VITALS: BP 124/88; PULSE 70; RESP 16; TEMP 36.2; O2SAT 100; BMI 27.3
--- NOTE | 2020-11-02 19:16 | W.ED.PSYCH ---
HPI - Psych General: Chief Complaint: Psychiatric Symptoms Stated Complaint: SI Time Seen by Provider: 11/02/20 18:59 Source: patient Mode of arrival: EMS Limitations: no limitations History of Present Illness: HPI Narrative: Patient is a 30-year-old male who presents to ED today via EMS for complaint of suicidal ideations and hallucinations. Patient tells me he feels suicidal without any specific plan. He denies previous suicide attempts. He does report he has having auditory hallucinations and the voices are telling him to jump in front of a train or to stab himself. He is also having visual hallucinations. He states there are several individuals in town that are out to get him and he is scared for his life. Patient has a history of homelessness but states he is currently stating with his brother. Reports marijuana use and methamphetamine use. MD complaint: suicidal ideation, feels depressed and other (hallucinations ) Duration: constant History of same: Yes Associated psychiatric symptoms: depression, suicidal ideation, auditory hallucinations and visual hallucinations Associated symptoms: Reports auditory hallucinations, visual hallucinations, depression and suicidal ideation; Deny homicidal ideation Treatments prior to arrival: none If self harm: admits thoughts of self harm Review of Systems Const: Denies: fever(s) or chills Card: Denies: chest pain, palpitations, lightheadedness or syncope Resp: Denies: dyspnea GI: Denies: abdominal pain, nausea, vomiting or diarrhea Musc: Denies: neck pain or back pain Skin/Breast: Denies: rash Neuro: Denies: headache(s) Psych: Reports: anxiety, depression, hopelessness, visual hallucinations, auditory hallucinations and suicidal ideation; Denies: mood swings, sleeping less or homicidal ideation Physical Exam Const: COMMON NORMALS: no acute distress, average body habitus, patient oriented x3, no limitations, healthy appearing, alert and well nourished GENERAL APPEARANCE: cooperative ORIENTATION/CONSCIOUSNESS: Yes awake, Yes oriented to person, Yes oriented to place and Yes oriented to time Neuro: COMMON NORMALS: patient oriented x3 SENSORIUM/ORIENTATION: Yes alert, Yes oriented to person, Yes oriented to place and Yes oriented to time Psych: COMMON NORMALS: mental status grossly normal, Normal thought process present, cooperative, normal affect, speech normal and activity/motor behavior normal APPEARANCE: Yes grossly normal ATTITUDE: Yes calm ACTIVITY/MOTOR BEHAVIOR: Yes appropriate eye contact SPEECH: Yes normal speech MOOD & AFFECT: Yes euthymic mood THOUGHT PROCESS: Normal thought process present THOUGHT CONTENT: Yes Normal thought content present ATTENTION/CONCENTRATION: Yes attention grossly intact and Yes concentration grossly intact MEMORY/COGNITION: Yes memory grossly intact and Yes cognition grossly intact INSIGHT: Good insight present (Psych) JUDGEMENT: Fair judgement present (Psych) Course Consultations: Consultation #1: Dr. James-accepts admit to N[facility]; recommends affidavit but no 96 hour hold at this time Vital Signs: Vital signs: Vital Signs Temperature 97.1 F L 11/02/20 18:59 Pulse Rate 70 11/02/20 18:59 Respiratory Rate 16 11/02/20 18:59 Blood Pressure 124/88 11/02/20 18:59 Pulse Oximetry 100 11/02/20 18:59 MDM - Psych Lab Data: Labs: Lab Results 11/02/20 11/02/20 Range/Units 19:07 19:07 WBC 9.9 (4.0-10.0) 10^3/ uL RBC 5.49 H (4.1-5.3) 10^6/u L Hgb 17.6 H (11.7-16.6) g/dL Hct 53.2 H (42.0-52.0) % MCV 96.9 H (80-94) fL MCH 32.1 (28.0-34.0) pg MCHC 33.1 (30.0-36.0) g/dL RDW 11.7 L (12.1-15.1) % Plt Count 289 (130-400) 10^3/c mm MPV 10.2 (7.4-10.4) fL Neut % (Auto) 62.1 % Lymph % (Auto) 22.7 % Angelina % (Auto) 9.9 % Eos % (Auto) 3.7 % Baso % (Auto) 1.1 % Neut # (Auto) 6.14 (1.8-7.7) 10^3/u L Lymph # (Auto) 2.3 (0.8-4.8) 10^3/u L Angelina # (Auto) 1.0 H (0.2-0.9) 10^3/u L Eos # (Auto) 0.4 (0.0-0.8) 10^3/u L Baso # (Auto) 0.1 (0.0-0.1) 10^3/u L Nucleated RBC % (a uto) 0 % Nucleated RBCs # 0.0 /100WBC Sodium 139 (136-145) mmol/L Potassium 3.6 (3.5-5.1) mmol/L Chloride 101 (98-107) mmol/L Carbon Dioxide 26 (22-29) mmol/L Anion Gap 15.6 (5-19) BUN 14 (6-20) mg/dL Creatinine 0.8 (0.7-1.2) mg/dL GFR Calculation 114.3 (90-130) mL/min Glucose 75 (65-115) mg/dL Calculated Osmolal ity 287 (285-295) mOsm/k g Calcium 8.9 (8.5-10.5) mg/dL Total Bilirubin 0.8 (0.15-1.2) mg/dL AST 14 (0-40) U/L ALT 17 (0-41) U/L Alkaline Phosphata se 102 (40-130) IU/L Total Protein 7.7 (6.6-8.7) g/dL Albumin 4.7 (3.5-5.2) g/dL Globulin 3.0 (1.3-4.6) g/dL Salicylates < 0.3 L (3-10) mg/dL Acetaminophen < 5.0 L (10-30) ug/mL Ethyl Alcohol < 10 (0-10) mg/dL Discharge Plan Discharge Patient Disposition: Admitted As Inpatient Clinical Impression: Suicidal ideation, Hallucinations, Polysubstance abuse Condition: Stable Prescriptions: No Action Catherinequruth DVT-PE Treat 30D Start 5 mg (74 tabs) tablets,dose pack See Rx Instructions .ROUTE .COMPLEX Qty: 74 RF: 0 Voltaren 1 % gel 4 g topical QID Qty: 100 RF: 0 Coding Level of Care Code ED Pouring Crane Operator for Chg Fwd Exam Expanded Problem Focused
[2020-11-02 19:26] LABS: Basophils # 0.1 10^3/uL (0.0-0.1); Basophils % 1.1 %; Eosinophils # 0.4 10^3/uL (0.0-0.8); Eosinophils % 3.7 %; Hematocrit 53.2 % (42.0-52.0); Hemoglobin 17.6 g/dL (11.7-16.6); Lymphocytes # 2.3 10^3/uL (0.8-4.8); Lymphocytes % 22.7 %; Mean Corpuscular HGB Conc 33.1 g/dL (30.0-36.0); Mean Corpuscular Hemoglobin 32.1 pg (28.0-34.0); Mean Corpuscular Volume 96.9 fL (80-94); Mean Platelet Volume 10.2 fL (7.4-10.4); Monocytes % 9.9 %; Neutrophils # 6.14 10^3/uL (1.8-7.7); Neutrophils % 62.1 %; Nucleated Red Blood Cells % 0 %; Platelet Count 289 10^3/cmm (130-400); Red Blood Count 5.49 10^6/uL (4.1-5.3); Red Cell Distribution Width 11.7 % (12.1-15.1); White Blood Count 9.9 10^3/uL (4.0-10.0)
[2020-11-02 19:40] LABS: Alanine Aminotransferase 17 U/L (0-41); Albumin Level 4.7 g/dL (3.5-5.2); Alkaline Phosphatase 102 IU/L (40-130); Anion Gap 15.6 (5-19); Aspartate Amino Transferase 14 U/L (0-40); Blood Urea Nitrogen 14 mg/dL (6-20); Calcium 8.9 mg/dL (8.5-10.5); Carbon Dioxide 26 mmol/L (22-29); Chloride 101 mmol/L (98-107); Glomerular Filtration Rate 114.3 mL/min (90-130); Glucose 75 mg/dL (65-115); Osmolality Calculated 287 mOsm/kg (285-295); Potassium 3.6 mmol/L (3.5-5.1); Sodium 139 mmol/L (136-145); Total Bilirubin 0.8 mg/dL (0.15-1.2); Total Protein 7.7 g/dL (6.6-8.7)
[2020-11-02 19:41] LABS: Acetaminophen < 5.0 ug/mL (10-30); Alcohol Level < 10 mg/dL (0-10); Salicylate < 0.3 mg/dL (3-10)
[2020-11-02 20:59] VITALS: BP 153/102; PULSE 90; RESP 20; TEMP 37; O2SAT 96
[2020-11-02] MEDS: trazodone 50 mg Tablet PO (21:52)
[2020-11-02] MEDS: hyDROXYzine 25 mg Capsule 50 MG PO (21:52)
--- NOTE | 2020-11-02 21:55 | PC.NURSE ---
2155 Pt requested Trazadone 50 mg po and Vistaril 50mg po for anxiety and sleep
[2020-11-03 06:00] VITALS: BP 123/71; PULSE 56; RESP 14; TEMP 36.8; O2SAT 95
[2020-11-03] MEDS: apixaban 5 mg Tablet 2.5 MG PO ×2 (09:42→17:44)
[2020-11-03 14:00] VITALS: BP 148/81; PULSE 81; RESP 16; TEMP 36.2; O2SAT 96
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
[2020-11-03] MEDS: diclofenac 1% Topical Gel 100 gm 1 APPLIC TOPICAL (17:26)
[2020-11-03] MEDS: nicotine 2 mg Gum BUCCAL (18:46)
[2020-11-03 22:00] VITALS: BP 153/96; PULSE 79; RESP 17; TEMP 36.6; O2SAT 98
[2020-11-04 06:00] VITALS: BP 134/88; PULSE 75; RESP 15; TEMP 36.9; O2SAT 96
--- NOTE | 2020-11-04 07:28 | PM.NDC ---
Diagnoses at Discharge Discharge Diagnosis (1) Psychosis: Status: Acute (2) Depression: Status: Acute Qualifiers: Depression Type: unspecified Qualified Code(s): F32.9 - Major depressive disorder, single episode, unspecified (3) Suicidal ideation: Status: Acute (4) Polysubstance abuse: Status: Acute (5) Malingering: Status: Acute Reason for Visit Reason for Visit: SI Involuntary Hold Information 96 Hour Hold: 96 Hour Involuntary Admission: No Discharge Data Vitals: Last Vital Signs Temp 98.5 F 11/04/20 06:00 Pulse 75 11/04/20 06:00 Resp 15 11/04/20 06:00 BP 134/88 11/04/20 06:00 Pulse Ox 96 11/04/20 06:00 Discharge Plan Discharge Patient Disposition: Home Condition: Stable Prescriptions: New Eliquis 5 mg Tablet 2.5 mg PO BID 30 Days Qty: 30 RF: 1 Continued diclofenac sodium [Voltaren] 1 % gel 4 g topical QID Qty: 100 RF: 0 Discontinued Eliquis DVT-PE Treat 30D Start 5 mg (74 tabs) tablets,dose pack 2.5 mg PO BID RF: 0 Discharge Orders: Discharge Order (Routine); Ordered 11/04/20 Ordered By: Kai James Discharge Diet: Regular Discharge Activity: Resume usual activity Patient Instructions: Opioid Safety Discharge Attestations NPU Time Spent in Discharge Care*: less than 30 min Specific Discharge Activities: Specific discharge activities: educating patient, discussing with insurance case manager/social workers/dc planners, documenting/other paperwork and evaluating patient/reviewing data Status at Discharge: Cognitive status at discharge: cognitively intact, Behavioral status at discharge: cooperative, Coding Level of Care Code Acute [facility] DC note Diagnoses Psychosis F29 Depression F32.9 Depression Type: unspecified Suicidal ideation R45.851 Polysubstance abuse F19.10 Malingering Z76.5
[2020-11-04 07:30] VITALS: BP 134/88; PULSE 75; RESP 15; TEMP 36.9; O2SAT 96
== END 2020-11-04 08:47 | disposition home or self-care (01) | DRG 885 ==
LOC: ER 20:07 → NP 20:26
PROVIDERS: Admitting Provider Psychiatry & Neurology Psychiatry; Emergency Provider Physician Assistant; Visit Provider Psychiatry & Neurology Psychiatry
DX: F23 Brief psychotic disorder (principal); R45.851 Suicidal ideations; F15.10 Other stimulant abuse, uncomplicated; F12.10 Cannabis abuse, uncomplicated; Z59.0 Homelessness; Z91.14 Patient's other noncompliance with medication regimen; F32.9 Major depressive disorder, single episode, unspecified; Z86.718 Personal history of other venous thrombosis and embolism; Z86.711 Personal history of pulmonary embolism; F17.210 Nicotine dependence, cigarettes, uncomplicated; Z76.5 Malingerer [conscious simulation]
CPT/HCPCS: 80053; 80307; 85025; 99285

== ENCOUNTER 2020-12-28 20:24 | Inpatient (IN) | payer MEDICARE, SELFPAY ==
[2020-12-28 20:50] VITALS: BP 124/89; PULSE 88; RESP 16; TEMP 36.9; O2SAT 95; BMI 27.3
--- NOTE | 2020-12-28 21:34 | ED_ITS ---
Documented by User: JACKIE Zhu 12/28/20 22:15 HPI - Psych General: Chief Complaint: Psychiatric Symptoms Stated Complaint: SI Time Seen by Provider: 12/28/20 21:11 Source: patient Mode of arrival: EMS Limitations: no limitations History of Present Illness: HPI Narrative: Patient is a 30-year-old male who presents to the ED today being brought by EMS for complaints of suicidal ideations. Patient tells me he has several individuals who were threatening him and telling him to kill himself. He states this evening he took a wire and made superficial scratches to his right forearm. He states this was not a direct suicide attempt however does feel suicidal and when asked about a specific plan he tells me he will just cut deeper next time. He is not experiencing hallucinations. No homicidal ideations. Patient was admitted to NPU approximately a month ago for similar symptoms. He was placed on a medication in which he does not know the name of. He was supposed to follow-up with [facility] however has not because he does not have transportation. MD complaint: suicidal ideation Onset (ago): hour(s) History of same: Yes Relieving factors: none Exacerbating factors: other Associated symptoms: Reports no associated symptoms, depression and suicidal ideation; Deny auditory hallucinations, visual hallucinations or homicidal ideation Treatments prior to arrival: none If self harm: admits thoughts of self harm and has plan Review of Systems Const: Denies: fever(s) or chills Card: Denies: chest pain, palpitations, lightheadedness or syncope Resp: Denies: dyspnea GI: Denies: abdominal pain, nausea, vomiting or diarrhea Skin/Breast: Denies: rash Neuro: Denies: headache(s) Psych: Reports: depression, hopelessness and suicidal ideation; Denies: anxiety, visual hallucinations, auditory hallucinations or homicidal ideation [facility] ED PFSH: Medical History (Updated 12/28/20 @ 21:38 by JACKIE Zhu) DVT (deep venous thrombosis) Hx of pulmonary embolus Physical Exam Const: COMMON NORMALS: no acute distress, patient oriented x3, alert and well nourished GENERAL APPEARANCE: cooperative and well kempt HENMT: COMMON NORMALS: normocephalic and atraumatic HEAD & SCALP: normocephalic and atraumatic Resp: COMMON NORMALS: normal respiratory effort and clear to auscultation bilaterally AUSCULTATION: clear to auscultation bilaterally Cardio: COMMON NORMALS: regular rate and regular rhythm RATE: regular rate RHYTHM: regular rhythm Extremity: NARRATIVE EXTREMITY EXAM: Several superficial abrasions to right forearm Neuro: COMMON NORMALS: patient oriented x3 SENSORIUM/ORIENTATION: Yes alert Psych: COMMON NORMALS: mental status grossly normal, Normal thought process p resent, cooperative, normal affect, speech normal, activity/motor behavior normal, denies hallucinations and denies homicidal ideation APPEARANCE: Yes grossly normal and Yes well kempt ATTITUDE: Yes calm ACTIVITY/MOTOR BEHAVIOR: Yes appropriate eye contact and No psychomotor agitation SPEECH: Yes normal speech MOOD & AFFECT: Yes euthymic mood THOUGHT PROCESS: Normal thought process present THOUGHT CONTENT: Yes Normal thought content present ATTENTION/CONCENTRATION: Yes attention grossly intact and Yes concentration grossly intact MEMORY/COGNITION: Yes memory grossly intact and Yes cognition grossly intact INSIGHT: Good insight present (Psych) JUDGEMENT: Good judgement present (Psych) Course Consultations: Consultation #1: Dr. James-recommends admit to NPU under obs status Vital Signs: Vital signs: Vital Signs Temperature 98.6 F 12/29/20 06:00 Pulse Rate 59 L 12/29/20 06:00 Respiratory Rate 17 12/29/20 06:00 Blood Pressure 114/61 12/29/20 06:00 Pulse Oximetry 96 12/29/20 06:00 MDM - Psych Lab Data: Labs: Lab Results 12/28/20 12/28/20 12/28/20 Range/Units 21:07 21:07 21:50 WBC 7.4 (4.0-10.0) 10^3/ uL RBC 5.07 (4.1-5.3) 10^6/u L Hgb 15.9 (11.7-16.6) g/dL Hct 47.1 (42.0-52.0) % MCV 92.9 (80-94) fL MCH 31.4 (28.0-34.0) pg MCHC 33.8 (30.0-36.0) g/dL RDW 11.8 L (12.1-15.1) % Plt Count 218 (130-400) 10^3/c mm MPV 11.2 H (7.4-10.4) fL Neut % (Auto) 43.3 % Lymph % (Auto) 37.0 % [place] % (Auto) 8.7 % Eos % (Auto) 9.0 % Baso % (Auto) 1.5 % Neut # (Auto) 3.19 (1.8-7.7) 10^3/u L Lymph # (Auto) 2.7 (0.8-4.8) 10^3/u L [place] # (Auto) 0.6 (0.2-0.9) 10^3/u L Eos # (Auto) 0.7 (0.0-0.8) 10^3/u L Baso # (Auto) 0.1 (0.0-0.1) 10^3/u L Nucleated RBC % (a uto) 0 % Nucleated RBCs # 0.0 /100WBC Sodium 143 (136-145) mmol/L Potassium 3.8 (3.5-5.1) mmol/L Chloride 106 (98-107) mmol/L Carbon Dioxide 23 (22-29) mmol/L Anion Gap 17.8 (5-19) BUN 8 (6-20) mg/dL Creatinine 0.8 (0.7-1.2) mg/dL GFR Calculation 114.3 (90-130) mL/min Glucose 98 (65-115) mg/dL Calculated Osmolal ity 294 (285-295) mOsm/k g Calcium 9.4 (8.5-10.5) mg/dL Total Bilirubin 0.5 (0.15-1.2) mg/dL AST 14 (0-40) U/L ALT 17 (0-41) U/L Alkaline Phosphata se 81 (40-130) IU/L Total Protein 7.1 (6.6-8.7) g/dL Albumin 4.6 (3.5-5.2) g/dL Globulin 2.5 (1.3-4.6) g/dL Salicylates < 0.3 L (3-10) mg/dL Urine Opiates Scre en Negative (Negative) ng/mL Acetaminophen < 5.0 L (10-30) ug/mL Ur Barbiturates Sc reen Negative (Negative) ng/mL Ur Phencyclidine S crn Negative (Negative) ng/mL Ur Amphetamines Sc reen Negative (Negative) ng/mL U Benzodiazepines Scrn Negative (Negative) ng/mL Urine Cocaine Scre en Negative (Negative) ng/mL U Marijuana (THC) Screen Positive H (Negative) ng/mL Ethyl Alcohol < 10 (0-10) mg/dL Discharge Plan Discharge Patient Disposition: Placed in Observation Admit Provider: Neville Cruz Clinical Impression: Suicidal ideation Coding Level of Care Code ED Restorative Art Embalmer for Chg Fwd Exam Detailed Documented by User: Rohit Paulino DO 12/29/20 07:29 HPI - Psych General: Chief Complaint: Psychiatric Symptoms Stated Complaint: SI Time Seen by Provider: 12/28/20 21:11 [facility] ED PFSH: Medical History (Updated 12/28/20 @ 21:38 by JACKIE Zhu) DVT (deep venous thrombosis) Hx of pulmonary embolus Course Vital Signs: Vital signs: Vital Signs Temperature 98.6 F 12/29/20 06:00 Pulse Rate 59 L 12/29/20 06:00 Respiratory Rate 17 12/29/20 06:00 Blood Pressure 114/61 12/29/20 06:00 Pulse Oximetry 96 12/29/20 06:00 MDM - Psych MDM Narrative: Medical decision making narrative: 30-year-old patient seen by Mrs. Espino?Edgard THACKER. I agree with her history, evaluation, and work-up. Psychiatry was consulted from the ER, and it was deemed necessary to observe this patient in the NPU. Orders have been written Lab Data: Labs: Lab Results 12/28/20 12/28/20 12/28/20 Range/Units 21:07 21:07 21:50 WBC 7.4 (4.0-10.0) 10^3/ uL RBC 5.07 (4.1-5.3) 10^6/u L Hgb 15.9 (11.7-16.6) g/dL Hct 47.1 (42.0-52.0) % MCV 92.9 (80-94) fL MCH 31.4 (28.0-34.0) pg MCHC 33.8 (30.0-36.0) g/dL RDW 11.8 L (12.1-15.1) % Plt Count 218 (130-400) 10^3/c mm MPV 11.2 H (7.4-10.4) fL Neut % (Auto) 43.3 % Lymph % (Auto) 37.0 % [place] % (Auto) 8.7 % Eos % (Auto) 9.0 % Baso % (Auto) 1.5 % Neut # (Auto) 3.19 (1.8-7.7) 10^3/u L Lymph # (Auto) 2.7 (0.8-4.8) 10^3/u L [place] # (Auto) 0.6 (0.2-0.9) 10^3/u L Eos # (Auto) 0.7 (0.0-0.8) 10^3/u L Baso # (Auto) 0.1 (0.0-0.1) 10^3/u L Nucleated RBC % (a uto) 0 % Nucleated RBCs # 0.0 /100WBC Sodium 143 (136-145) mmol/L Potassium 3.8 (3.5-5.1) mmol/L Chloride 106 (98-107) mmol/L Carbon Dioxide 23 (22-29) mmol/L Anion Gap 17.8 (5-19) BUN 8 (6-20) mg/dL Creatinine 0.8 (0.7-1.2) mg/dL GFR Calculation 114.3 (90-130) mL/min Glucose 98 (65-115) mg/dL Calculated Osmolal ity 294 (285-295) mOsm/k g Calcium 9.4 (8.5-10.5) mg/dL Total Bilirubin 0.5 (0.15-1.2) mg/dL AST 14 (0-40) U/L ALT 17 (0-41) U/L Alkaline Phosphata se 81 (40-130) IU/L Total Protein 7.1 (6.6-8.7) g/dL Albumin 4.6 (3.5-5.2) g/dL Globulin 2.5 (1.3-4.6) g/dL Salicylates < 0.3 L (3-10) mg/dL Urine Opiates Scre en Negative (Negative) ng/mL Acetaminophen < 5.0 L (10-30) ug/mL Ur Barbiturates Sc reen Negative (Negative) ng/mL Ur Phencyclidine S crn Negative (Negative) ng/mL Ur Amphetamines Sc reen Negative (Negative) ng/mL U Benzodiazepines Scrn Negative (Negative) ng/mL Urine Cocaine Scre en Negative (Negative) ng/mL U Marijuana (THC) Screen Positive H (Negative) ng/mL Ethyl Alcohol < 10 (0-10) mg/dL Discharge Plan Discharge Patient Disposition: Placed in Observation Admit Provider: Neville Cruz Clinical Impression: Suicidal ideation Coding Level of Care Code ED [employer] Art Embalmer for Ariesg Fwd Exam Detailed
[2020-12-28 21:36] LABS: Basophils # 0.1 10^3/uL (0.0-0.1); Basophils % 1.5 %; Eosinophils # 0.7 10^3/uL (0.0-0.8); Hematocrit 47.1 % (42.0-52.0); Hemoglobin 15.9 g/dL (11.7-16.6); Lymphocytes # 2.7 10^3/uL (0.8-4.8); Mean Corpuscular HGB Conc 33.8 g/dL (30.0-36.0); Mean Corpuscular Hemoglobin 31.4 pg (28.0-34.0); Mean Corpuscular Volume 92.9 fL (80-94); Mean Platelet Volume 11.2 fL (7.4-10.4); Monocytes # 0.6 10^3/uL (0.2-0.9); Monocytes % 8.7 %; Neutrophils # 3.19 10^3/uL (1.8-7.7); Neutrophils % 43.3 %; Nucleated Red Blood Cells % 0 %; Platelet Count 218 10^3/cmm (130-400); Red Blood Count 5.07 10^6/uL (4.1-5.3); Red Cell Distribution Width 11.8 % (12.1-15.1); White Blood Count 7.4 10^3/uL (4.0-10.0)
[2020-12-28 21:51] LABS: Alanine Aminotransferase 17 U/L (0-41); Albumin Level 4.6 g/dL (3.5-5.2); Alkaline Phosphatase 81 IU/L (40-130); Anion Gap 17.8 (5-19); Aspartate Amino Transferase 14 U/L (0-40); Blood Urea Nitrogen 8 mg/dL (6-20); Calcium 9.4 mg/dL (8.5-10.5); Carbon Dioxide 23 mmol/L (22-29); Chloride 106 mmol/L (98-107); Globulin 2.5 g/dL (1.3-4.6); Glomerular Filtration Rate 114.3 mL/min (90-130); Glucose 98 mg/dL (65-115); Osmolality Calculated 294 mOsm/kg (285-295); Potassium 3.8 mmol/L (3.5-5.1); Sodium 143 mmol/L (136-145); Total Bilirubin 0.5 mg/dL (0.15-1.2); Total Protein 7.1 g/dL (6.6-8.7)
[2020-12-28 21:52] LABS: Acetaminophen < 5.0 ug/mL (10-30); Alcohol Level < 10 mg/dL (0-10); Salicylate < 0.3 mg/dL (3-10)
[2020-12-28 22:20] LABS: Amphetamines Screen Urine Negative (Negative); Barbiturates Screen Urine Negative (Negative); Benzodiazepines Screen Urine Negative (Negative); Cocaine Screen Urine Negative (Negative); Opiate Screen Urine Negative (Negative); PCP Screen Urine Negative (Negative); THC Screen Urine Positive (Negative)
[2020-12-28 22:37] VITALS: BP 132/76; PULSE 80; RESP 17; O2SAT 98
[2020-12-28 22:56] VITALS: BP 154/89; PULSE 80; RESP 22; TEMP 36.8; O2SAT 96
[2020-12-28] MEDS: trazodone 50 mg Tablet PO (23:26)
[2020-12-28] MEDS: hyDROXYzine 25 mg Capsule 50 MG PO (23:26)
--- NOTE | 2020-12-28 23:30 | PC.NURSE ---
Pt requested meds for sleep and anxiety, Trazodone 50mg po for sleep and Vistaril 50mg po for anxiety given.
[2020-12-29 06:00] VITALS: BP 114/61; PULSE 59; RESP 17; TEMP 37; O2SAT 96
[2020-12-29] MEDS: aspirin 325 mg Tablet PO ×2 (08:20→20:06)
[2020-12-29] MEDS: nicotine 2 mg Gum BUCCAL ×3 (11:43→20:07)
[2020-12-29 14:00] VITALS: BP 131/83; PULSE 84; RESP 18; TEMP 36.7; O2SAT 97
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
[2020-12-29] MEDS: hyDROXYzine 25 mg Capsule 50 MG PO (20:08)
[2020-12-29] MEDS: trazodone 50 mg Tablet PO (20:09)
[2020-12-29 22:00] VITALS: BP 139/93; PULSE 77; RESP 17; TEMP 36.6; O2SAT 98
[2020-12-30 06:00] VITALS: BP 128/79; PULSE 85; RESP 14; TEMP 36.7; O2SAT 97
[2020-12-30] MEDS: ARIPiprazole 10 mg Tablet PO (07:54)
[2020-12-30] MEDS: aspirin 325 mg Tablet PO (07:54)
[2020-12-30] MEDS: nicotine 2 mg Gum BUCCAL ×2 (11:09→14:58)
[2020-12-30 14:00] VITALS: BP 143/84; PULSE 67; RESP 18; TEMP 36.4; O2SAT 97
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
[2020-12-30 16:08] VITALS: BP 143/84; PULSE 67; RESP 18; TEMP 36.4; O2SAT 97
== END 2020-12-30 16:16 | disposition home or self-care (01) | DRG 885 ==
LOC: ER 22:02 → NP 22:26
PROVIDERS: Admitting Provider Internal Medicine; Emergency Provider Physician Assistant; Visit Provider Internal Medicine
DX: F29 Unspecified psychosis not due to a substance or known physiological condition (principal); R45.851 Suicidal ideations; F17.210 Nicotine dependence, cigarettes, uncomplicated; F12.10 Cannabis abuse, uncomplicated; F32.9 Major depressive disorder, single episode, unspecified; Z91.14 Patient's other noncompliance with medication regimen; Z86.711 Personal history of pulmonary embolism; Z86.718 Personal history of other venous thrombosis and embolism; Z76.5 Malingerer [conscious simulation]
CPT/HCPCS: 80053; 80306; 80307; 85025; 99285

== ENCOUNTER 2021-03-19 12:18 | Emergency (ER) | payer MEDICARE, SELFPAY ==
[2021-03-19 12:51] VITALS: BP 141/85; PULSE 87; RESP 19; TEMP 36.9; O2SAT 95; BMI 28.8
--- NOTE | 2021-03-19 12:57 | ED_ITS ---
HPI - Back Pain/Injury General: Chief Complaint: Back Pain/Injury Stated Complaint: COVID SX: COUGH,CHEST CONGESTION,SORE THROAT Time Seen by Provider: 03/19/21 12:57 History of Present Illness: HPI Narrative: Mr. Mart is a 30-year-old gentleman without significant medical history presents emerged department due to respiratory symptoms. He reports 1 day history of subacute cough, malaise, and back discomfort. Cough is mildly productive with green sputum. He endorses generalized malaise but no specific fevers. No abdominal or GI symptoms. He denies sick contacts. Overall the intensity of symptoms moderate. The course has been worsening. He subjectively felt some urinary urgency however no hematuria identified. He is unsure if he has sick contacts. No other specific changes in health, exacerbating, or alleviating factors identified. Review of Systems General: Reports: 10 or more systems reviewed and unremarkable except in HPI and below Narrative: CONSTITUTIONAL: See HPI EYES - denies pain, denies loss of vision EARS - denies ear issues. NOSE - denies congestion or rhinorrhea. THROAT - d enies sore throat or difficulty swallowing. CARDIOVASCULAR - denies chest pain and palpitations RESPIRATORY -see HPI GASTROINTESTINAL - denies abdominal pain, no nausea vomiting, no changes in bowel habits GENITOURINARY - denies dysuria or urinary frequency MUSCULOSKELETAL-see HPI SKIN - denies rashes or new changed skin lesions NEUROLOGIC - denies focal weakness or sensory changes HEMATOLOGIC/LYMPHATIC - denies easy bruising or lymphadenopathy. [facility] ED PFSH: Medical History DVT (deep venous thrombosis) Hx of pulmonary embolus Psychiatric care Physical Exam Narrative: EXAM NARRATIVE: GENERAL/CONSTITUTIONAL - well-appearing. No acute distress. Eyes - PERRL, no conjunctival injection ENMT - Atraumatic external nose and ears. Moist mucous membranes NECK - supple. trachea midline CARDIOVASCULAR - regular rate and rhythm. Peripheral pulses 2+ and equal RESPIRATORY -mildly coarse to auscultation bilaterally. No retractions or accessory muscle use. ABDOMEN/GI - Nontender/Nondistended. No tenderness to percussion or evidence of peritonitis. No CVA tenderness. MSK - Extremities without obvious deformity or tenderness to palpation SKIN - Warm, Dry NEURO - alert and appropriately oriented. strength and sensation intact. Moves all extremities equally. PSYCH - Appropriate mood and affect Course ED course: - Patient was seen and evaluated by me at bedside -Vital signs obtained - Initial evaluation notable for no acute distress, nontoxic appearance. - Labs notable for no evidence of hematuria or urinary tract infection. Covid negative. - Imaging notable for no lobar consolidation. - Upon serial reexamination after treatment the patient was similar - Based on patient history, evaluation, labs, and imaging as interpreted the most likely cause of the patient's condition is pneumonia, however given negative Covid and description of green sputum atypical bacterial pneumonia is suspected and therefore patient will be given a prescription for antibiotics. - The results of ED evaluation were discussed with the patient including prescriptions and/or symptomatic cares (if applicable) including appropriate and responsible use, followup plan, and return precautions. The patient verbalized understanding and felt safe for discharge. - Patient discharged in satisfactory condition. Vital Signs: Vital signs: Vital Signs Temperature 98.3 F 03/19/21 15:31 Pulse Rate 74 03/19/21 15:31 Respiratory Rate 16 03/19/21 15:31 Blood Pressure 121/87 03/19/21 15:31 Pulse Oximetry 98 03/19/21 15:31 MDM - Back Pain/Injury Medical Records: Attestation: I reviewed the patient's medical records. Lab Data: Attestation: I reviewed the patient's lab results. Labs: Lab Results 03/19/21 03/19/21 Range/Units 13:41 Unknown Urine Color Yellow (Yellow) Urine Appearance Clear (CLEAR) Urine pH 5 (5-7) Ur Specific Gravit y 1.020 (1.005-1.030) Urine Protein Neg (Negative) Urine Glucose (UA) Norm (Normal) Urine Ketones Negative (Negative) Urine Blood Neg (Negative) Urine Nitrate Negative (Negative) Urine Bilirubin Neg (Negative) Urine Urobilinogen 4 H (Negative) mg/dL Ur Leukocyte Millie ase Negative (Negative) SARS-CoV-2 Ag (Rap id) Negative (Negative) Discharge Plan Discharge Patient Disposition: Home Clinical Impression: Pneumonia Condition: Stable Prescriptions: New doxycycline hyclate 100 mg tablet 100 mg PO BID 7 Days Qty: 14 RF: 0 No Action Pain Reliever (acetaminophen) 325 mg Tablet 325 mg PO QID PRN (Reason: Pain) RF: 0 ibuprofen 200 mg Tablet 200 mg PO Q6H PRN (Reason: Pain) RF: 0 Discharge Orders: Discharge ED (Routine); Ordered 03/19/21 Ordered By: Brendan Fall Discharge Diet: Usual diet Discharge Activity: Resume usual activity Patient Instructions: Pneumonia (ED) Activity Restrictions/Additional Instructions: Thank you for visiting the emergency department. You were seen and evaluated for cough with productive sputum. The exact cause of the symptoms is unclear though may be due to atypical bacterial infection or viral process. Given the description of symptoms you will be given a prescription for antibiotics. Please follow-up with your primary care provider. Please return to the emergency department for worsening of your symptoms or anything else that you are concerned about and feel needs emergency department evaluation. Coding Level of Care Code ED [employer] for Halle Sloan
--- NOTE | 2021-03-19 13:23 | XR_ITS ---
WS: [id number] XR chest 1V portable [id number] REASON FOR EXAM: cough FINDINGS: Mild tortuosity the thoracic aorta normal heart size. Calcified granulomatous disease in both hemithoraces. No active pulmonary parenchymal or pleural dise ase. Examination unchanged compared to 10/16/2020. XR/XR chest 1V portable [id number] IMPRESSION: No acute chest abnormality.
[2021-03-19] MEDS: acetaminophen 500 mg Tablet 1000 MG PO (13:43)
[2021-03-19] MEDS: ondansetron 4 MG Tablet PO (13:43)
[2021-03-19] MEDS: ketorolac 30 mg/mL INJ 15 MG IM (13:43)
[2021-03-19 13:49] LABS: Add Urine Microscopic? NO; Charge for UA Resulting for Rev
[2021-03-19 13:50] VITALS: BP 135/74; PULSE 91; RESP 18; TEMP 37.7; O2SAT 96
[2021-03-19 13:53] LABS: Bilirubin Urine Neg (Negative); Blood Urine Neg (Negative); Glucose Urine UA Norm (Normal); Ketones Urine Negative (Negative); Nitrate Urine Negative (Negative); Protein Urine Neg (Negative); Urine Appearance Clear (CLEAR); Urine Color Yellow (Yellow); pH Urine 5 (5-7)
[2021-03-19 13:54] LABS: Leukocyte Esterase Urine Negative (Negative); Urobilinogen Urine 4 mg/dL (Negative)
[2021-03-19 14:20] LABS: SARS Covid-2 Antigen Negative (Negative)
[2021-03-19 15:31] VITALS: BP 121/87; PULSE 74; RESP 16; TEMP 36.8; O2SAT 98
== END 2021-03-19 15:32 | disposition home or self-care (01) ==
PROVIDERS: Emergency Provider Emergency Medicine
DX: J18.9 Pneumonia, unspecified organism (principal); Z86.711 Personal history of pulmonary embolism; Z20.822 Contact with and (suspected) exposure to COVID-19
CPT/HCPCS: 71045; 81003; 87426; 96372; 99283; J1885; Q0162

== ENCOUNTER → 2021-05-12 13:29 | Outpatient (BNVA) | payer MEDICARE, SELFPAY | PROVIDERS: Visit Provider Psychiatry & Neurology Psychiatry | DX: F60.9 Personality disorder, unspecified (principal); F12.20 Cannabis dependence, uncomplicated; F15.20 Other stimulant dependence, uncomplicated | CPT/HCPCS: 99204 ==

== ENCOUNTER → 2021-06-16 08:18 | Outpatient (BNVA) | payer MEDICARE, SELFPAY | PROVIDERS: Visit Provider Social Worker | DX: F32.9 Major depressive disorder, single episode, unspecified (principal); F15.20 Other stimulant dependence, uncomplicated; F12.20 Cannabis dependence, uncomplicated | CPT/HCPCS: 90832 ==

== ENCOUNTER → 2021-06-30 07:24 | Outpatient (BNVA) | payer MEDICARE, SELFPAY | PROVIDERS: Visit Provider Social Worker | DX: F32.9 Major depressive disorder, single episode, unspecified (principal); F15.20 Other stimulant dependence, uncomplicated; F12.20 Cannabis dependence, uncomplicated | CPT/HCPCS: 90832 ==

== ENCOUNTER → 2021-07-07 12:54 | Outpatient (BNVA) | payer MEDICARE, SELFPAY | PROVIDERS: Visit Provider Psychiatry & Neurology Psychiatry | DX: F60.9 Personality disorder, unspecified (principal); F15.20 Other stimulant dependence, uncomplicated; F12.20 Cannabis dependence, uncomplicated | CPT/HCPCS: 99214 ==

== ENCOUNTER → 2021-07-14 10:50 | Outpatient (BNVA) | payer MEDICARE, SELFPAY | PROVIDERS: Visit Provider Social Worker | DX: F32.9 Major depressive disorder, single episode, unspecified (principal); F15.20 Other stimulant dependence, uncomplicated; F12.20 Cannabis dependence, uncomplicated | CPT/HCPCS: 90832 ==

== ENCOUNTER → 2021-07-30 14:06 | Outpatient (BNVA) | payer MEDICARE, SELFPAY | PROVIDERS: Visit Provider Social Worker | DX: F12.20 Cannabis dependence, uncomplicated (principal); F60.9 Personality disorder, unspecified | CPT/HCPCS: 90834 ==

== ENCOUNTER → 2021-09-14 09:41 | Outpatient (BNVA) | payer MEDICARE, SELFPAY | PROVIDERS: Visit Provider Social Worker | DX: F29 Unspecified psychosis not due to a substance or known physiological condition (principal); F60.9 Personality disorder, unspecified | CPT/HCPCS: 90834 ==

== ENCOUNTER → 2021-10-01 10:39 | Outpatient (BNVA) | payer MEDICARE, SELFPAY | PROVIDERS: Visit Provider Registered Nurse Neonatal Intensive Care | DX: J02.9 Acute pharyngitis, unspecified (principal); J30.9 Allergic rhinitis, unspecified | CPT/HCPCS: 87880 ==

== ENCOUNTER 2022-02-24 19:45 | Emergency (ER) | payer MEDICARE, SELFPAY ==
[2022-02-24 19:59] VITALS: BP 156/107; PULSE 91; RESP 16; TEMP 36.3; O2SAT 97
--- NOTE | 2022-02-24 20:06 | ED_ITS ---
HPI - Wound/Laceration General: Chief Complaint: Wound/Laceration Stated Complaint: RT leg swollen/red Time Seen by Provider: 02/24/22 20:05 History of Present Illness: 31-year-old male patient comes in today with complaints of redness and tenderness to the right lower extremity. Patient also would like to have his sutures removed to his dog bite area that occurred about 2 weeks ago. Patient appears nontoxic. Patient appears in mild to no pain. Patient has a have a history of DVT, and polysubstance abuse. Review of Systems General: Reports: 10 or more systems reviewed and unremarkable except in HPI and below Card: Denies: chest pain Resp: Denies: dyspnea Musc: Reports: extremity pain PFSH ED PFSH: Medical History DVT (deep venous thrombosis) Hx of pulmonary embolus Psychiatric care Social History Smoking and tobacco status: current every day smoker cigarettes Packs smoked per day: 0.5 Years cigarettes smoked: 21 Quit status (tobacco): has tried quititng Number of times tried to quit tobacco: 2 Second hand smoke exposure: Yes Physical Exam Const: COMMON NORMALS: alert HENMT: COMMON NORMALS: normocephalic HEAD & SCALP: normocephalic Neck/C-Spine: COMMON NORMALS: full ROM Resp: COMMON NORMALS: normal respiratory effort Cardio: COMMON NORMALS: regular rate RATE: regular rate Extremity: RIGHT LOWER EXTREMITY: Yes lower leg (14 cm area of redness with centralized punctate lesion, no fluctuance) Right lower leg: Yes inspection, Yes palpation (Induration of about 6 cm from the punctate lesion) and Yes neuro vascular exam Neuro: SENSORIUM/ORIENTATION: Yes alert Skin: LESIONS: lesion noted (Right lower leg with surrounding erythema) Course Vital Signs: Vital signs: Vital Signs Temperature 97.4 F L 02/24/22 19:59 Pulse Rate 91 02/24/22 19:59 Respiratory Rate 16 02/24/22 19:59 Blood Pressure 156/107 02/24/22 19:59 Pulse Oximetry 97 02/24/22 19:59 Oxygen Delivery Me thod 02/24/22 19:59 MDM - Wound/Laceration Medical Decision Making 31-year-old male patient comes in today with complaints of erythema to the right lower leg. Patient has a area of approximately 14 cm of redness with a centralized punctate lesion. Patient also has an area of induration within the area of redness is approximately 6 cm surrounding the punctate lesion with darker redness. Differential diagnosis includes but not limited to local reacti on to insect bite, abscess, cellulitis, contusion. No sign of DVT is noted. Patient be treated with antibiotics for cellulitis although there is a suspicion for localized reaction to insect bite. Patient was recommended to monitor for fever and worsening symptoms take antibiotic as directed and follow-up. Sutures were removed from the left lower extremity from previous wound by nursing. Discharge Plan Discharge Patient Disposition: Home Clinical Impression: Cellulitis of right leg Condition: Stable Prescriptions: New Bactrim DS 800-160 mg tablet 1 tab PO DAILY 7 Days Qty: 14 0RF No Action loratadine [Allergy Relief (loratadine)] 10 mg tablet 10 mg PO DAILY Qty: 60 0RF Daptacel (DTaP Pediatric) (PF) 15-10-5 Lf-mcg-Lf/0.5mL suspension 0.5 ml IM ONCE Qty: 0.5 0RF cephalexin 500 mg capsule 500 mg PO Q6H 7 Days Qty: 28 0RF Discharge Orders: Discharge ED (Routine); Ordered 02/24/22 Ordered By: Michael Shipman Discharge Diet: Usual diet Discharge Activity: Increase activity as tolerated Activity Restrictions/Additional Instructions: Take antibiotic as directed 1 tablet twice a day for 7 days. Elevate extremity is much as possible. Drink plenty of water with medication. Use acetaminophen or ibuprofen for pain. Follow-up with primary care in 3 days for recheck. Return to ER for fever greater than 100.4, increased redness and swelling to the lower extremity, or new concerns. Coding Level of Care Code ED Accredited Legal Secretary for Halle Sloan
[2022-02-24] MEDS: sulfamethoxazole-trimeth DS 160-800 mg Tablet 1 TAB PO (20:27)
== END 2022-02-24 20:31 | disposition home or self-care (01) ==
PROVIDERS: Emergency Provider Nurse Practitioner Family
DX: L03.115 Cellulitis of right lower limb (principal); Z86.718 Personal history of other venous thrombosis and embolism; F17.210 Nicotine dependence, cigarettes, uncomplicated
CPT/HCPCS: 99283

== ENCOUNTER → 2022-04-30 15:31 | Outpatient (BNVA) | payer MEDICARE, SELFPAY | PROVIDERS: PCP Family Medicine Adult Medicine; Visit Provider Registered Nurse Neonatal Intensive Care | DX: J02.9 Acute pharyngitis, unspecified (principal); Z20.822 Contact with and (suspected) exposure to COVID-19; B34.9 Viral infection, unspecified | CPT/HCPCS: 87071; 87426; 87880 ==

== ENCOUNTER 2022-06-07 20:42 | Inpatient (IN) | payer MEDICARE, SELFPAY ==
[2022-06-07 20:44] VITALS: BP 170/91; PULSE 110; RESP 18; TEMP 37.1; O2SAT 99
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
--- NOTE | 2022-06-07 20:51 | ECG_ITS ---
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 Measurements Intervals [place] Rate: 105 P: 79 [place]: 128 QRS: -28 QRSD: 109 T: 55 QT: 350 QTc: 463 Interpretive Statements SINUS TACHYCARDIA BORDERLINE LEFT AXIS DEVIATION [QRS AXIS < -20] Compared to ECG 10/16/2020 08:39:17 Sinus rhythm no longer present Intraventricular conduction delay no longer present ST (T wave) deviation no longer present Electronically Signed On 06-08-2022 12:57:10 PATIENT REGISTRAR by Herminia Damon M.D. [id number]
[2022-06-07 21:04] LABS: Basophils # 0.2 10^3/uL (0.0-0.1); Basophils % 2.1 %; Eosinophils # 0.4 10^3/uL (0.0-0.8); Eosinophils % 5.4 %; Hematocrit 49.1 % (42.0-52.0); Hemoglobin 17.3 g/dL (11.7-16.6); Lymphocytes # 3.3 10^3/uL (0.8-4.8); Lymphocytes % 43.6 %; Mean Corpuscular HGB Conc 35.2 g/dL (30.0-36.0); Mean Corpuscular Hemoglobin 32.3 pg (28.0-34.0); Mean Corpuscular Volume 91.8 fl (80-94); Mean Platelet Volume 10.8 fL (7.4-10.4); Monocytes # 0.4 10^3/uL (0.2-0.9); Monocytes % 5.4 %; Neutrophils # 3.25 10^3/uL (1.8-7.7); Neutrophils % 43.1 %; Nucleated Red Blood Cells % 0 %; Platelet Count 279 10^3/cmm (130-400); Red Blood Count 5.35 10^6/uL (4.1-5.3); Red Cell Distribution Width 12.3 % (12.1-15.1); White Blood Count 7.6 10^3/uL (4.0-10.0)
[2022-06-07 21:16] LABS: Amphetamines Screen Urine Negative (Negative); Barbiturates Screen Urine Negative (Negative); Benzodiazepines Screen Urine Negative (Negative); Cocaine Screen Urine Negative (Negative); Opiate Screen Urine Negative (Negative); PCP Screen Urine Negative (Negative); THC Screen Urine Positive (Negative)
[2022-06-07 21:36] LABS: Alanine Aminotransferase 25 U/L (0-41); Alcohol Level 130 mg/dL (0-10); Alkaline Phosphatase 80 U/L (40-130); Anion Gap 18.7 (5-19); Aspartate Amino Transferase 18 U/L (0-40); Blood Urea Nitrogen 8 mg/dL (6-20); Calcium 9.3 mg/dL (8.5-10.5); Carbon Dioxide 21 mmol/L (22-29); Chloride 107 mmol/L (98-107); Globulin 3.3 g/dL (1.3-4.6); Glomerular Filtration Rate 131.5 mL/min (90-130); Glucose 108 mg/dL (65-115); Osmolality Calculated 295 mOsm/kg (285-295); Potassium 3.7 mmol/L (3.5-5.1); Sodium 143 mmol/L (136-145); Thyroid Stimulating Hormone 1.11 uIU/mL (0.27-4.20); Total Bilirubin 0.3 mg/dL (0.15-1.2); Total Protein 8.3 g/dL (6.6-8.7)
[2022-06-07 21:43] LABS: Add Urine Microscopic? YES; Bilirubin Urine Neg (Negative); Blood Urine Neg (Negative); Glucose Urine UA Norm (Normal); Ketones Urine Negative (Negative); Leukocyte Esterase Urine Negative (Negative); Mucus Urine 1+ /hpf; Nitrate Urine Negative (Negative); Protein Urine Trace (Negative); Squamous Epithelial Cell Urine 0-4 /hpf (0-5); Urine Appearance Clear (CLEAR); Urine Color Yellow (Yellow); Urobilinogen Urine Norm (Negative); pH Urine 5 (5-7)
[2022-06-07 21:44] LABS: Add Urine Culture? No
[2022-06-07 21:45] LABS: Acetaminophen < 5.0 ug/mL (10-30); Salicylate < 0.3 mg/dL (3-10)
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
[2022-06-07 22:39] VITALS: BP 164/119; PULSE 109; RESP 20; TEMP 36.8; O2SAT 95
[2022-06-07] MEDS: hyDROXYzine 25 mg Capsule 50 MG PO (23:18)
[2022-06-07] MEDS: nicotine 2 mg Gum BUCCAL (23:19)
[2022-06-07] MEDS: trazodone 50 mg Tablet PO (23:19)
[2022-06-08 06:00] VITALS: BP 162/100; PULSE 79; RESP 20; TEMP 36.6; O2SAT 96
[2022-06-08] MEDS: thiamine 100 mg Tablet PO (10:27)
[2022-06-08] MEDS: folic acid 1 mg Tablet PO (10:27)
[2022-06-08] MEDS: multivitamin therapeutic Tablet 1 TAB PO (10:27)
[2022-06-08] MEDS: nicotine 2 mg Gum BUCCAL ×2 (10:28→14:05)
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
[2022-06-08] MEDS: hyDROXYzine 25 mg Capsule 50 MG PO (13:51)
[2022-06-08 14:00] VITALS: BP 157/100; PULSE 80; RESP 18; TEMP 36.6; O2SAT 97
[2022-06-08 20:07] VITALS: BP 159/113; PULSE 80; RESP 18; TEMP 36.4; O2SAT 97
[2022-06-09 06:00] VITALS: BP 150/102; PULSE 71; RESP 18; TEMP 36.6; O2SAT 97
[2022-06-09] MEDS: multivitamin therapeutic Tablet 1 TAB PO (08:33)
[2022-06-09] MEDS: thiamine 100 mg Tablet PO (08:33)
[2022-06-09] MEDS: folic acid 1 mg Tablet PO (08:33)
[2022-06-09] MEDS: nicotine 2 mg Gum BUCCAL ×2 (08:35→11:06)
--- NOTE | 2022-06-09 11:31 | DCPLANNER ---
GEOVANI completed on 06/09/22 @ 1128. Pt was given a copy of his rights and he stated he understood his rights.
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
[2022-06-09 12:07] VITALS: BP 150/102; PULSE 71; RESP 18; TEMP 36.6; O2SAT 97
== END 2022-06-09 12:50 | disposition home or self-care (01) | DRG 881 ==
LOC: ER 20:57 → NP 21:59
PROVIDERS: Admitting Provider Psychiatry & Neurology Psychiatry; Emergency Provider Emergency Medicine; PCP Family Medicine Adult Medicine; Visit Provider Psychiatry & Neurology Psychiatry
DX: F32.A Depression, unspecified (principal); R45.851 Suicidal ideations; F15.20 Other stimulant dependence, uncomplicated; F60.9 Personality disorder, unspecified; F10.10 Alcohol abuse, uncomplicated; F12.20 Cannabis dependence, uncomplicated
CPT/HCPCS: 80053; 80306; 80307; 81001; 84443; 85025; 93005; 97150; 97165; 99285

== ENCOUNTER 2022-09-08 01:30 | Emergency (ER) | payer MEDICARE, SELFPAY ==
[2022-09-08 01:35] VITALS: BP 164/102; PULSE 107; RESP 18; O2SAT 96; BMI 30.4
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
[2022-09-08 01:40] VITALS: BP 151/108; PULSE 99; RESP 16; O2SAT 98
[2022-09-08 03:07] VITALS: PULSE 100; RESP 18; O2SAT 95
[2022-09-08 03:21] VITALS: BP 182/100; PULSE 77; RESP 18; O2SAT 97
== END 2022-09-08 03:22 | disposition home or self-care (01) ==
PROVIDERS: Emergency Provider Nurse Practitioner Family; PCP Family Medicine Adult Medicine
DX: S01.01XA Laceration without foreign body of scalp, initial encounter (principal); S09.90XA Unspecified injury of head, initial encounter; F19.10 Other psychoactive substance abuse, uncomplicated; H61.21 Impacted cerumen, right ear; F17.210 Nicotine dependence, cigarettes, uncomplicated; Y04.2XXA Assault by strike against or bumped into by another person, initial encounter
CPT/HCPCS: 12001; 69210; 70450; 99284

== ENCOUNTER 2022-11-11 00:44 | Emergency (ER) | payer MEDICARE, MEDICAID, SELFPAY ==
[2022-11-11 00:47] VITALS: BP 152/120; PULSE 96; RESP 26; TEMP 36.6; O2SAT 93; BMI 31.1
--- NOTE | 2022-11-11 00:47 | XRR_ITS ---
PROCEDURE INFORMATION: Exam: XR Chest Exam date and time: 11/11/2022 1:00 AM Age: 32 years old Clinical indication: Shortness of breath; Additional info: SOB TECHNIQUE: Imaging protocol: Radiologic exam of the chest. Views: 1 view. COMPARISON: CR XR chest 1V portable [id number] 10/16/2020 9:14 AM FINDINGS: Lungs: No consolidation. Pleural spaces: No pleural effusion. No pneumothorax. Heart/Mediastinum: No cardiomegaly. Bones/joints: No acute fracture. XR/XR chest 1V portable [id number] IMPRESSION: No acute cardiopulmonary findings.
--- NOTE | 2022-11-11 00:48 | ED_ITS ---
HPI - SOB/Dyspnea General: Chief Complaint: Shortness of Breath/Dyspnea Stated Complaint: SOB Time Seen by Provider: 11/11/22 00:45 Source: patient and EMS Mode of arrival: EMS Limitations: no limitations History of Present Illness: HPI Narrative: 32-year-old male states he been drinking some alcohol tonight states he has been smoking marijuana from a dab pen as well he states started flank is for like he cannot get a breath then states he does have some wheezing has had a slight cough for the last 2 days but states he is feeling anxious and could not breathe earlier he has some mild wheezing here states his breathing is felt much improved since coming in by ambulance. He denies any chest pain denies any fevers. Associated symptoms: Deny abdominal pain, chest pain, fever(s), nausea or vomiting Review of Systems Const: Denies: fever(s) or chills Eyes: Denies: eye discomfort ENMT: Denies: throat pain or dental pain Card: Denies: chest pain Resp: Reports: dyspnea and wheezing GI: Denies: abdominal pain, nausea, vomiting or diarrhea : Denies: dysuria Musc: Denies: neck pain or back pain Skin/Breast: Denies: rash Neuro: Denies: headache(s) Psych: Reports: anxiety PFSH ED PFSH: Medical History DVT (deep venous thrombosis) Hx of pulmonary embolus Social History Smoking and tobacco status: current every day smoker cigarettes Packs smoked per day: 0.5 Years cigarettes smoked: 21 Quit status (tobacco): has tried quititng Number of times tried to quit tobacco: 2 Second hand smoke exposure: Yes Physical Exam Const: COMMON NORMALS: no acute distress, patient oriented x3 and healthy appearing HENMT: COMMON NORMALS: normocephalic and atraumatic HEAD & SCALP: normocephalic and atraumatic Eye: COMMON NORMALS: conjunctivae normal CONJUNCTIVA: Yes conjunctivae normal Neck/C-Spine: COMMON NORMALS: full ROM and supple Chest: COMMONS NORMALS: normal inspection of the chest and normal palpation of entire chest wall Resp: COMMON NORMALS: normal respiratory effort, No retractions and No use of accessory muscles AUSCULTATION: wheezes Cardio: COMMON NORMALS: regular rate, regular rhythm and No murmurs present (Cardio) RATE: regular rate RHYTHM: regular rhythm GI: COMMON NORMALS: Normal to inspection, nondistended, normoactive bowel sounds present, Soft to palpation, non-tender and no masses PALPATION: Yes Soft to palpation Extremity: COMMON NORMALS: normal to inspection and full ROM Neuro: COMMON NORMALS: patient oriented x3, moves all extremities and no focal motor deficits Psych: COMMON NORMALS: mental status grossly normal, Normal thought process present and cooperative THOUGHT PROCESS: Normal thought process present Skin: COMMON NORMALS: no rashes or lesions noted and no wounds GENERAL SKIN EXAM: no rashes or lesions noted Course Vital Signs: Vital signs: Vital Signs Temperature 97.8 F 11/11/22 00:47 Pulse Rate 76 11/11/22 01:15 Respiratory Rate 22 H 11/11/22 01:15 Blood Pressure 145/108 11/11/22 01:06 Pulse Oximetry 97 11/11/22 01:15 Oxygen Delivery Me thod Room Air 11/11/22 01:11 MDM - SOB/Dyspnea Medical Decision Making Patient presents here with dyspnea he does have some mild wheezing likely has some asthma he is likely more short of breath from anxiety from his marijuana use he has had no distress here no hypoxia x-rays normal we will discharge him on steroids and albuterol he is to follow-up with PCP and return if worsening. Medical Records I reviewed the patient's medical records. Lab Data I reviewed the patient's lab results. 11/11/22 01:00 11/11/22 01:00 Labs/Radiology: Laboratory Results WBC 9.8 10^3/uL (4.0-10.0) 11/11/22 01:00 RBC 5.16 10^6/uL (4.1-5.3) 11/11/22 01:00 Hgb 16.3 g/dL (11.7-16.6) 11/11/22 01:00 Hct 47.7 % (42.0-52.0) 11/11/22 01:00 MCV 92.4 fl (80-94) 11/11/22 01:00 MCH 31.6 pg (28.0-34.0) 11/11/22 01:00 MCHC 34.2 g/dL (30.0-36.0) 11/11/22 01:00 RDW 11.7 % (12.1-15.1) L 11/11/22 01:00 Plt Count 216 10^3/cmm (130-400) 11/11/22 01:00 MPV 10.6 fL (7.4-10.4) H 11/11/22 01:00 Neut % (Auto) 43.4 % 11/11/22 01:00 Lymph % (Auto) 36.1 % 11/11/22 01:00 [place] % (Auto) 7.6 % 11/11/22 01:00 Eos % (Auto) 10.9 % 11/11/22 01:00 Baso % (Auto) 1.5 % 11/11/22 01:00 Neut # (Auto) 4.23 10^3/uL (1.8-7.7) 11/11/22 01:00 Lymph # (Auto) 3.5 10^3/uL (0.8-4.8) 11/11/22 01:00 [place] # (Auto) 0.7 10^3/uL (0.2-0.9) 11/11/22 01:00 Eos # (Auto) 1.1 10^3/uL (0.0-0.8) H 11/11/22 01:00 Baso # (Auto) 0.2 10^3/uL (0.0-0.1) H 11/11/22 01:00 Nucleated RBC % (auto) 0 % 11/11/22 01:00 Nucleated RBCs # 0.0 /100WBC 11/11/22 01:00 Sodium 139 mmol/L (136-145) 11/11/22 01:00 Potassium 3.9 mmol/L (3.5-5.1) 11/11/22 01:00 Chloride 104 mmol/L (98-107) 11/11/22 01:00 Carbon Dioxide 21 mmol/L (22-29) L 11/11/22 01:00 Anion Gap 17.9 (5-19) 11/11/22 01:00 BUN 10 mg/dL (6-20) 11/11/22 01:00 Creatinine 0.7 mg/dL (0.7-1.2) 11/11/22 01:00 GFR Calculation 131.5 mL/min (90-130) H 11/11/22 01:00 Glucose 100 mg/dL (65-115) 11/11/22 01:00 Calculated Osmolality 287 mOsm/kg (285-295) 11/11/22 01:00 Calcium 9.3 mg/dL (8.5-10.5) 11/11/22 01:00 Total Bilirubin 0.4 mg/dL (0.15-1.2) 11/11/22 01:00 AST 25 U/L (0-40) 11/11/22 01:00 ALT 33 U/L (0-41) 11/11/22 01:00 Alkaline Phosphatase 66 U/L (40-130) 11/11/22 01:00 Total Protein 7.4 g/dL (6.6-8.7) 11/11/22 01:00 Albumin 4.8 g/dL (3.5-5.2) 11/11/22 01:00 Globulin 2.6 g/dL (1.3-4.6) 11/11/22 01:00 Discharge Plan Discharge Patient Disposition: Home Clinical Impression: Cannabis use disorder, severe, dependence, Dyspnea Condition: Stable Prescriptions: New prednisone 50 mg tablet 50 mg PO DAILY Qty: 5 0RF albuterol sulfate 90 mcg/actuation HFA aerosol inhaler 2 inh INHALATION Q6H PRN (Reason: shortness of breath or wheezing) Qty: 8 0RF No Action Vitamin B-1 (mononitrate) 100 mg Tablet 100 mg PO DAILY 30 Days Qty: 30 1RF trazodone 50 mg Tablet 50 mg PO BEDTIME PRN (Reason: Sleep) 30 Days Qty: 30 1RF Discharge Orders: Discharge ED (Routine); Ordered 11/11/22 Ordered By: Sobia Daily Referrals: Tomas Larose MD [Primary Care Provider] - 1-3 days Discharge Diet: Advance as tolerated Discharge Activity: Resume usual activity Patient Instructions: Dyspnea (ED) Coding Level of Care Code ED Heavy Rail Train Operator for Halle Sloan
[2022-11-11] MEDS: dexamethasone 10 mg/mL INJ IVP (00:59)
[2022-11-11 01:03] VITALS: O2SAT 92
[2022-11-11 01:06] VITALS: BP 145/108; PULSE 94; O2SAT 93
[2022-11-11 01:07] LABS: Basophils # 0.2 10^3/uL (0.0-0.1); Basophils % 1.5 %; Eosinophils # 1.1 10^3/uL (0.0-0.8); Eosinophils % 10.9 %; Hematocrit 47.7 % (42.0-52.0); Hemoglobin 16.3 g/dL (11.7-16.6); Lymphocytes # 3.5 10^3/uL (0.8-4.8); Lymphocytes % 36.1 %; Mean Corpuscular HGB Conc 34.2 g/dL (30.0-36.0); Mean Corpuscular Hemoglobin 31.6 pg (28.0-34.0); Mean Corpuscular Volume 92.4 fl (80-94); Mean Platelet Volume 10.6 fL (7.4-10.4); Monocytes # 0.7 10^3/uL (0.2-0.9); Monocytes % 7.6 %; Neutrophils # 4.23 10^3/uL (1.8-7.7); Neutrophils % 43.4 %; Nucleated Red Blood Cells % 0 %; Platelet Count 216 10^3/cmm (130-400); Red Blood Count 5.16 10^6/uL (4.1-5.3); Red Cell Distribution Width 11.7 % (12.1-15.1); White Blood Count 9.8 10^3/uL (4.0-10.0)
[2022-11-11] MEDS: albuterol 2.5 mg/3 mL Neb INHALATION (01:09)
[2022-11-11] MEDS: ipratropium 0.5 mg/2.5 mL Neb INHALATION (01:09)
[2022-11-11 01:11] VITALS: PULSE 85; RESP 22; O2SAT 98
[2022-11-11 01:15] VITALS: PULSE 76; RESP 22; O2SAT 97
[2022-11-11 01:27] LABS: Alanine Aminotransferase 33 U/L (0-41); Albumin Level 4.8 g/dL (3.5-5.2); Alkaline Phosphatase 66 U/L (40-130); Anion Gap 17.9 (5-19); Aspartate Amino Transferase 25 U/L (0-40); Blood Urea Nitrogen 10 mg/dL (6-20); Calcium 9.3 mg/dL (8.5-10.5); Carbon Dioxide 21 mmol/L (22-29); Chloride 104 mmol/L (98-107); Globulin 2.6 g/dL (1.3-4.6); Glomerular Filtration Rate 131.5 mL/min (90-130); Glucose 100 mg/dL (65-115); Osmolality Calculated 287 mOsm/kg (285-295); Potassium 3.9 mmol/L (3.5-5.1); Sodium 139 mmol/L (136-145); Total Bilirubin 0.4 mg/dL (0.15-1.2); Total Protein 7.4 g/dL (6.6-8.7)
[2022-11-11 01:38] VITALS: BP 166/109; PULSE 85; RESP 16; O2SAT 94
== END 2022-11-11 01:39 | disposition home or self-care (01) ==
PROVIDERS: Emergency Provider Emergency Medicine; PCP Family Medicine Adult Medicine
DX: F12.20 Cannabis dependence, uncomplicated (principal); R06.00 Dyspnea, unspecified; F17.210 Nicotine dependence, cigarettes, uncomplicated; Z86.711 Personal history of pulmonary embolism
CPT/HCPCS: 71045; 80053; 85025; 94640; 96374; 99284; J1100; J7613; J7644

== ENCOUNTER 2023-03-04 11:13 | Emergency (ER) | payer MEDICARE, SELFPAY ==
[2023-03-04] VITALS (8 sets, daily range): BP systolic 140–181; BP diastolic 99–119; PULSE 54–89; RESP 18–68; TEMP 36.4; O2SAT 95–98; BMI 28.1
--- NOTE | 2023-03-04 11:33 | ECG_ITS ---
[facility] Test Date: 2023-03-04 Pat Name: Rakesh Mart Department: Room: Gender: Male Telesales Advisor: : 1990 Requested By: Flavia Espino Order Number: [id number] Garcia MD: Herminia Damon M.D. Measurements Intervals [place] Rate: 68 P: 65 [place]: 149 QRS: -26 QRSD: 110 T: -2 QT: 383 QTc: 409 Interpretive Statements SINUS RHYTHM WITH SINUS ARRHYTHMIA BORDERLINE LEFT AXIS DEVIATION [QRS AXIS < -20] Compared to ECG 06/07/2022 21:29:10 Sinus tachycardia no longer present Electronically Signed On 03-04-2023 13:31:48 CDT by Herminia Damon M.D. [id number] f
--- NOTE | 2023-03-04 11:33 | XR_ITS ---
WS: [id number] Exam: XR chest 1V portable [id number] Date/Time of Exam: 03/04/2023 11:33 AM Reason For Exam: chest pain Comparison 11/11/2022. Findings: The lungs are clear and fully expanded. Costophrenic angles are sharp. No infiltrates. Bronchovascula r relief appears normal. Cardiac silhouette is unremarkable. Bony elements are intact. IMPRESSION: Unremarkable chest radiograph.
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
[2023-03-04 11:49] LABS: Basophils # 0.1 10^3/uL (0.0-0.1); Eosinophils # 0.2 10^3/uL (0.0-0.8); Eosinophils % 3.4 %; Hematocrit 49.6 % (37-53); Lymphocytes % 28.6 %; Mean Corpuscular HGB Conc 33.9 g/dL (30-55); Mean Corpuscular Hemoglobin 31.9 pg (27-33); Mean Corpuscular Volume 94.1 fl (82-101); Mean Platelet Volume 10.2 fL (7.4-10.4); Monocytes # 0.5 10^3/uL (0.2-0.9); Neutrophils # 4.09 10^3/uL (1.8-7.7); Neutrophils % 59.7 %; Nucleated Red Blood Cells % 0 %; Platelet Count 213 10^3/cmm (157-399); Red Blood Count 5.27 10^6/uL (3.85-5.65); Red Cell Distribution Width 12.4 % (12.1-15.1); White Blood Count 6.85 10^3/uL (3.29-11.43)
[2023-03-04] MEDS: cloNIDine 0.1 mg Tablet PO (12:21)
[2023-03-04 12:25] LABS: Troponin(5th) Baseline 7 ng/L (0-15)
[2023-03-04 12:29] LABS: Alanine Aminotransferase 27 U/L (0-41); Alkaline Phosphatase 80 U/L (40-130); Anion Gap 16.3 (5-19); Aspartate Amino Transferase 17 U/L (0-40); Blood Urea Nitrogen 15 mg/dL (6-20); Calcium 9.4 mg/dL (8.5-10.5); Carbon Dioxide 24 mmol/L (22-29); Chloride 106 mmol/L (98-107); Globulin 2.2 g/dL (1.3-4.6); Glomerular Filtration Rate 112.8 mL/min (90-130); Glucose 91 mg/dL (65-115); Osmolality Calculated 294 mOsm/kg (285-295); Potassium 4.3 mmol/L (3.5-5.1); Sodium 142 mmol/L (136-145); Total Bilirubin 1.1 mg/dL (0.15-1.2); Total Protein 7.2 g/dL (6.6-8.7)
--- NOTE | 2023-03-04 13:33 | ECG_ITS ---
[facility] Test Date: 2023-03-04 Pat Name: Rakesh Mart Department: Room: Gender: Male Wedger: : 1990 Requested By: Flavia Espino Order Number: [id number] Garcia MD: Herminia Damon M.D. Measurements Intervals [place] Rate: 56 P: 48 [place]: 138 QRS: -20 QRSD: 104 T: -3 QT: 393 QTc: 380 Interpretive Statements SINUS BRADYCARDIA WITH SINUS ARRHYTHMIA Compared to ECG 06/07/2022 21:29:10 Sinus tachycardia no longer present Electronically Signed On 03-04-2023 13:31:54 CDT by Herminia Damon M.D. [email or web address] avon [email or web address]/OM/[id number]
[2023-03-04 15:23] LABS: Troponin 5 2HR 7.43 ng/L (0-15); Troponin 5 2HR Delta 0.43 ABS# (0-10)
== END 2023-03-04 15:14 | disposition home or self-care (01) ==
PROVIDERS: Physician Assistant; Emergency Provider Emergency Medicine; PCP Family Medicine Adult Medicine
DX: R07.89 Other chest pain (principal); I10 Essential (primary) hypertension; F17.210 Nicotine dependence, cigarettes, uncomplicated; Z86.711 Personal history of pulmonary embolism
CPT/HCPCS: 71045; 80053; 84484; 85025; 93005; 99285

== ENCOUNTER 2023-03-22 21:24 | Emergency (ER) | payer MEDICARE, SELFPAY ==
[2023-03-22 21:29] VITALS: BP 186/116; PULSE 88; RESP 18; TEMP 36.9; O2SAT 97; BMI 28.1
--- NOTE | 2023-03-22 21:37 | XRR_ITS ---
PROCEDURE INFORMATION: Exam: XR Chest Exam date and time: 03/22/2023 9:52 PM Age: 32 years old Clinical indication: Pain; Chest pressure; Additional info: Chest pain TECHNIQUE: Imaging protocol: Radiologic exam of the chest. Views: 1 view. COMPARISON: CR XR chest 1V portable [id number] 03/04/2023 11:42 AM FINDINGS: Lungs: Lungs are clear bilaterally. Pleural spaces: No pleural effusion. No pneumothorax. Heart/Mediastinum: The cardiac silhouette and mediastinal contours are unremarkable. Bones/joints: Stable mild levoscoliosis in the visualized spine. XR/XR chest 1V portable [id number] IMPRESSION: 1. No acute cardiopulmonary process. 2. Incidental/nonacute findings are listed in the report.
--- NOTE | 2023-03-22 21:37 | ECG_ITS ---
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 Measurements Intervals [place] Rate: 78 P: 65 [place]: 160 QRS: -24 QRSD: 114 T: -11 QT: 340 QTc: 388 Interpretive Statements SINUS RHYTHM BORDERLINE LEFT AXIS DEVIATION [QRS AXIS < -20] MODERATE INTRAVENTRICULAR CONDUCTION DELAY [110+ ms QRS DURATION] Compared to ECG 03/04/2023 13:08:18 Intraventricular conduction delay now present Sinus bradycardia no longer present Sinus arrhythmia no longer present Electronically Signed On 03-23-2023 7:41:28 CDT by Gideon Rojas M.D. [id number]
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
[2023-03-22] MEDS: aspirin 81 mg Chew Tablet 324 MG PO (21:49)
[2023-03-22 21:55] LABS: Basophils # 0.1 10^3/uL (0.0-0.1); Basophils % 1.5 %; Eosinophils # 0.4 10^3/uL (0.0-0.8); Eosinophils % 5.2 %; Hematocrit 43.7 % (37-53); Lymphocytes # 2.4 10^3/uL (0.8-4.8); Lymphocytes % 35.3 %; Mean Corpuscular HGB Conc 34.1 g/dL (30-55); Mean Platelet Volume 10.2 fL (7.4-10.4); Monocytes # 0.6 10^3/uL (0.2-0.9); Monocytes % 8.3 %; Neutrophils # 3.34 10^3/uL (1.8-7.7); Neutrophils % 49.6 %; Nucleated Red Blood Cells % 0 %; Platelet Count 215 10^3/cmm (157-399); Red Blood Count 4.65 10^6/uL (3.85-5.65); Red Cell Distribution Width 11.7 % (12.1-15.1); White Blood Count 6.74 10^3/uL (3.29-11.43)
[2023-03-22 22:12] LABS: Troponin(5th) Baseline < 6 ng/L (0-15)
[2023-03-22 22:13] LABS: Anion Gap 13.1 (5-19); Blood Urea Nitrogen 10 mg/dL (6-20); Calcium 9.4 mg/dL (8.5-10.5); Carbon Dioxide 26 mmol/L (22-29); Chloride 108 mmol/L (98-107); Glomerular Filtration Rate 112.8 mL/min (90-130); Glucose 102 mg/dL (65-115); Osmolality Calculated 295 mOsm/kg (285-295); Potassium 4.1 mmol/L (3.5-5.1); Sodium 143 mmol/L (136-145)
[2023-03-22 22:37] VITALS: BP 153/115
[2023-03-22] MEDS: cloNIDine 0.1 mg Tablet PO (22:37)
[2023-03-22 22:38] VITALS: BP 153/115; PULSE 88; RESP 16; O2SAT 96
[2023-03-22 22:39] VITALS: BP 153/115; PULSE 88; RESP 16; TEMP 36.9; O2SAT 96
== END 2023-03-22 22:40 | disposition home or self-care (01) ==
PROVIDERS: Emergency Provider Family Medicine; PCP Family Medicine Adult Medicine
DX: R07.89 Other chest pain (principal); I10 Essential (primary) hypertension; F17.210 Nicotine dependence, cigarettes, uncomplicated
CPT/HCPCS: 36415; 71045; 80048; 84484; 85025; 93005; 99285

== ENCOUNTER 2023-07-21 01:59 | Emergency (ER) | payer MEDICARE, SELFPAY ==
[2023-07-21 02:00] VITALS: BP 177/116; PULSE 100; RESP 17; TEMP 37.1; O2SAT 98; BMI 28.1
--- NOTE | 2023-07-21 02:02 | XRR_ITS ---
PROCEDURE INFORMATION: Exam: XR Chest Exam date and time: 07/21/2023 2:27 AM Age: 33 years old Clinical indication: Chest wall pain; Additional info: Chest pain TECHNIQUE: Imaging protocol: Radiologic exam of the chest. Views: 1 view. COMPARISON: CR XR chest 1V portable [id number] 03/22/2023 9:52 PM FINDINGS: Lungs: No CHF/pulmonary edema. Visible lungs appear essentially clear. Pleural spaces: No visible pneumothorax. No definite pleural fluid. Heart/Mediastinum: Heart size appears within normal limits. Bones/joints: No significant acute finding. XR/XR chest 1V portable [id number] IMPRESSION: 1. Essentially unremarkable single view chest. 2. Other findings discussed above.
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
--- NOTE | 2023-07-21 02:05 | ECG_ITS ---
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 Measurements Intervals [place] Rate: 95 P: 55 [place]: 136 QRS: -29 QRSD: 118 T: 13 QT: 348 QTc: 438 Interpretive Statements SINUS RHYTHM BORDERLINE LEFT AXIS DEVIATION [QRS AXIS < -20] MODERATE INTRAVENTRICULAR CONDUCTION DELAY [110+ ms QRS DURATION] Compared to ECG 03/22/2023 21:35:37 No significant changes Electronically Signed On 07-21-2023 11:03:36 LIVESTOCK FARMWORKER by Gideon Rojas M.D. [id number] f
[2023-07-21 02:24] LABS: Basophils # 0.1 10^3/uL (0.0-0.1); Basophils % 0.9 %; Eosinophils # 0.3 10^3/uL (0.0-0.8); Eosinophils % 3.8 %; Lymphocytes # 3.3 10^3/uL (0.8-4.8); Lymphocytes % 43.1 %; Mean Corpuscular HGB Conc 35.5 g/dL (30-55); Mean Corpuscular Hemoglobin 32.2 pg (27-33); Mean Corpuscular Volume 90.6 fl (82-101); Mean Platelet Volume 9.5 fL (7.4-10.4); Monocytes # 0.6 10^3/uL (0.2-0.9); Monocytes % 7.4 %; Neutrophils # 3.37 10^3/uL (1.8-7.7); Neutrophils % 44.3 %; Nucleated Red Blood Cells % 0 %; Platelet Count 271 10^3/cmm (157-399); Red Blood Count 5.41 10^6/uL (3.85-5.65); Red Cell Distribution Width 11.8 % (12.1-15.1); White Blood Count 7.61 10^3/uL (3.29-11.43)
[2023-07-21 02:33] VITALS: BP 151/107; PULSE 97; O2SAT 98
[2023-07-21 02:47] LABS: Troponin(5th) Baseline < 6 ng/L (0-15)
[2023-07-21 02:48] LABS: Alanine Aminotransferase 44 U/L (0-41); Albumin Level 5.4 g/dL (3.5-5.2); Alkaline Phosphatase 73 U/L (40-130); Aspartate Amino Transferase 21 U/L (0-40); Blood Urea Nitrogen 15 mg/dL (6-20); Calcium 10.3 mg/dL (8.5-10.5); Carbon Dioxide 24 mmol/L (22-29); Chloride 100 mmol/L (98-107); Creatinine Clr Calc Pharmacy 139.8863; Globulin 3.1 g/dL (1.3-4.6); Glucose 98 mg/dL (65-115); Osmolality Calculated 291 mOsm/kg (285-295); Sodium 140 mmol/L (136-145); Total Bilirubin 0.4 mg/dL (0.15-1.2); Total Protein 8.5 g/dL (6.6-8.7)
[2023-07-21 03:09] VITALS: BP 156/102; PULSE 95; RESP 18; O2SAT 96
[2023-07-21 03:48] VITALS: BP 132/95; PULSE 81; RESP 14; O2SAT 93
[2023-07-21 04:09] LABS: Troponin 5 2HR 6.81 ng/L (0-15)
[2023-07-21 04:36] VITALS: BP 121/92
== END 2023-07-21 04:41 | disposition home or self-care (01) ==
PROVIDERS: Emergency Provider Emergency Medicine; PCP Family Medicine Adult Medicine
DX: R07.89 Other chest pain (principal)
CPT/HCPCS: 71045; 80053; 84484; 85025; 93005; 99285

== ENCOUNTER 2023-07-26 20:03 | Emergency (ER) | payer MEDICARE, MEDICAID, SELFPAY ==
[2023-07-26 20:09] VITALS: BP 154/94; PULSE 100; RESP 18; TEMP 36.6; O2SAT 98; BMI 28.1
--- NOTE | 2023-07-26 20:17 | XRR_ITS ---
PROCEDURE INFORMATION: Exam: XR Chest Exam date and time: 07/26/2023 8:38 PM Age: 33 years old Clinical indication: Other: High blood pressure; Additional info: Cp TECHNIQUE: Imaging protocol: Radiologic exam of the chest. Views: 1 view. COMPARISON: CR (CHEST, ) 07/21/2023 2:27 AM FINDINGS: Lungs: Unremarkable. No consolidation. Pleural spaces: Unremarkable. No pleural effusion. No pneumothorax. Heart/Mediastinum: Unremarkable. No cardiomegaly. Bones/joints: Unremarkable. XR/XR chest 1V portable [id number] IMPRESSION: No acute findings.
--- NOTE | 2023-07-26 20:19 | ECG_ITS ---
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 Measurements Intervals [place] Rate: 91 P: 68 [place]: 133 QRS: -23 QRSD: 116 T: 10 QT: 346 QTc: 426 Interpretive Statements SINUS RHYTHM BORDERLINE LEFT AXIS DEVIATION [QRS AXIS < -20] MODERATE INTRAVENTRICULAR CONDUCTION DELAY [110+ ms QRS DURATION] NONSPECIFIC ST ELEVATION [0.05+ mV ST ELEVATION] Compared to ECG 07/21/2023 02:05:15 ST (T wave) deviation now present Electronically Signed On 07-27-2023 21:36:09 LIFE ENRICHMENT DIRECTOR by Victor Manuel Shannon M.D. [id number]
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
[2023-07-26 20:38] LABS: Basophils # 0.1 10^3/uL (0.0-0.1); Eosinophils # 0.2 10^3/uL (0.0-0.8); Hematocrit 44.3 % (37-53); Lymphocytes % 33.2 %; Mean Corpuscular HGB Conc 35.7 g/dL (30-55); Mean Corpuscular Hemoglobin 31.9 pg (27-33); Mean Corpuscular Volume 89.5 fl (82-101); Mean Platelet Volume 9.8 fL (7.4-10.4); Monocytes # 0.6 10^3/uL (0.2-0.9); Monocytes % 9.3 %; Neutrophils # 3.15 10^3/uL (1.8-7.7); Neutrophils % 52.2 %; Nucleated Red Blood Cells % 0 %; Platelet Count 227 10^3/cmm (157-399); Red Blood Count 4.95 10^6/uL (3.85-5.65); Red Cell Distribution Width 11.7 % (12.1-15.1); White Blood Count 6.03 10^3/uL (3.29-11.43)
[2023-07-26 20:57] LABS: Troponin(5th) Baseline 7 ng/L (0-15)
[2023-07-26 21:01] VITALS: BP 120/83; PULSE 98; O2SAT 95
[2023-07-26 21:07] LABS: Alanine Aminotransferase 25 U/L (0-41); Alkaline Phosphatase 68 U/L (40-130); Anion Gap 14.7 (5-19); Aspartate Amino Transferase 16 U/L (0-40); Blood Urea Nitrogen 16 mg/dL (6-20); Calcium 9.8 mg/dL (8.5-10.5); Carbon Dioxide 27 mmol/L (22-29); Chloride 100 mmol/L (98-107); Creatinine Clr Calc Pharmacy 139.8863; Globulin 2.6 g/dL (1.3-4.6); Glucose 159 mg/dL (65-115); Lipase 36 U/L (13-60); Osmolality Calculated 291 mOsm/kg (285-295); Potassium 3.7 mmol/L (3.5-5.1); Sodium 138 mmol/L (136-145); Total Bilirubin 0.5 mg/dL (0.15-1.2); Total Protein 7.6 g/dL (6.6-8.7)
[2023-07-26 21:24] VITALS: BP 120/83; PULSE 84; O2SAT 98
== END 2023-07-26 21:27 | disposition home or self-care (01) ==
PROVIDERS: Emergency Provider Emergency Medicine; PCP Family Medicine Adult Medicine
DX: R07.9 Chest pain, unspecified (principal); I10 Essential (primary) hypertension; F17.210 Nicotine dependence, cigarettes, uncomplicated
CPT/HCPCS: 71045; 80053; 83690; 84484; 85025; 93005; 99285

== ENCOUNTER 2023-11-15 21:26 | Emergency (ER) | payer MEDICARE, SELFPAY ==
--- NOTE | 2023-11-15 21:29 | XRR_ITS ---
PROCEDURE INFORMATION: Exam: XR Chest Exam date and time: 11/15/2023 9:40 PM Age: 33 years old Clinical indication: Pain; Chest pressure; Additional info: Cp TECHNIQUE: Imaging protocol: Radiologic exam of the chest. Views: 1 view. COMPARISON: CR XR chest 1V portable [id number] 07/26/2023 8:38 PM FINDINGS: Lungs: Unremarkable. No consolidation or mass. Pleural spaces: Unremarkable. No pleural effusion. No pneumothorax. Heart/Mediastinum: Unremarkable. No cardiomegaly. Bones/joints: Unremarkable. XR/XR chest 1V portable [id number] IMPRESSION: No acute findings.
[2023-11-15 21:30] VITALS: BP 124/74; PULSE 92; RESP 16; TEMP 37.1; O2SAT 91
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
[2023-11-15 21:49] VITALS: BP 124/74; PULSE 94; RESP 19; O2SAT 98
[2023-11-15 21:50] LABS: Basophils # 0.1 10^3/uL (0.0-0.1); Basophils % 1.5 %; Eosinophils # 0.2 10^3/uL (0.0-0.8); Eosinophils % 2.8 %; Hematocrit 51.9 % (37-53); Lymphocytes # 2.4 10^3/uL (0.8-4.8); Lymphocytes % 31.8 %; Mean Corpuscular HGB Conc 34.5 g/dL (30-55); Mean Corpuscular Hemoglobin 31.4 pg (27-33); Mean Corpuscular Volume 91.1 fl (82-101); Mean Platelet Volume 9.7 fL (7.4-10.4); Monocytes # 0.6 10^3/uL (0.2-0.9); Monocytes % 7.3 %; Neutrophils # 4.24 10^3/uL (1.8-7.7); Neutrophils % 56.2 %; Nucleated Red Blood Cells % 0 %; Platelet Count 285 10^3/cmm (157-399); Red Cell Distribution Width 11.9 % (12.1-15.1); White Blood Count 7.54 10^3/uL (3.29-11.43)
[2023-11-15 22:00] VITALS: BP 124/74; PULSE 95; RESP 24; O2SAT 95
[2023-11-15 22:10] LABS: Troponin(5th) Baseline 7 ng/L (0-15)
[2023-11-15 22:13] LABS: Alanine Aminotransferase 39 U/L (0-41); Albumin Level 5.4 g/dL (3.5-5.2); Alkaline Phosphatase 76 U/L (40-130); Aspartate Amino Transferase 17 U/L (0-40); Blood Urea Nitrogen 15 mg/dL (6-20); Calcium 10.1 mg/dL (8.5-10.5); Carbon Dioxide 27 mmol/L (22-29); Chloride 103 mmol/L (98-107); Creatinine Clr Calc Pharmacy 139.8863; Globulin 3.2 g/dL (1.3-4.6); Glucose 109 mg/dL (65-115); Lipase 40 U/L (13-60); Osmolality Calculated 297 mOsm/kg (285-295); Sodium 143 mmol/L (136-145); Total Bilirubin 0.5 mg/dL (0.15-1.2); Total Protein 8.6 g/dL (6.6-8.7)
[2023-11-15 22:30] VITALS: BP 124/74
[2023-11-15 22:33] VITALS: BP 120/72; PULSE 70; RESP 14; O2SAT 98
== END 2023-11-16 01:30 | disposition home or self-care (01) ==
PROVIDERS: Emergency Provider Emergency Medicine; PCP Family Medicine Adult Medicine
DX: R07.9 Chest pain, unspecified (principal); I10 Essential (primary) hypertension; F17.210 Nicotine dependence, cigarettes, uncomplicated
CPT/HCPCS: 36415; 71045; 80053; 83690; 84484; 85025; 99285

== ENCOUNTER 2024-03-23 21:22 | Emergency (ER) | payer MEDICARE, SELFPAY ==
--- NOTE | 2024-03-23 21:23 | XRR_ITS ---
PROCEDURE INFORMATION: Exam: XR Chest Exam date and time: 03/23/2024 10:07 PM Age: 33 years old Clinical indication: Pain; Chest pressure; Patient HX: C/O cp TECHNIQUE: Imaging protocol: Radiologic exam of the chest. Views: 1 view. COMPARISON: CR XR chest 1V portable [id number] 11/15/2023 9:40 PM FINDINGS: Lungs: Unremarkable. No consolidation. Pleural spaces: Unremarkable. No pleural effusion. No pneumothorax. Heart/Mediastinum: Unremarkable. No cardiomegaly. Bones/joints: Unremarkable. XR/XR chest 1V portable [id number] IMPRESSION: No acute findings.
--- NOTE | 2024-03-23 21:23 | ECG_ITS ---
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 Measurements Intervals [place] Rate: 87 P: 61 NH: 157 QRS: -33 QRSD: 109 T: -6 QT: 342 QTc: 412 Interpretive Statements SINUS RHYTHM LEFT AXIS DEVIATION [QRS AXIS < -30] PATTERN CONSISTENT WITH PULMONARY DISEASE Compared to ECG 07/26/2023 20:19:38 Intraventricular conduction delay no longer present ST (T wave) deviation no longer present Electronically Signed On 03-24-2024 20:06:21 CDT by Victor Manuel Shannon M.D. [email or web address] ([email or web address] va medical centerIonix Medicalmart[email or web address]/NU/[id number] f
[2024-03-23 21:52] VITALS: BMI 33.4
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
[2024-03-23 22:01] VITALS: BP 135/105; PULSE 93; RESP 18; TEMP 36.6; O2SAT 97
[2024-03-23 22:03] LABS: Basophils # 0.1 10^3/uL (0.0-0.1); Basophils % 1.3 %; Eosinophils # 0.3 10^3/uL (0.0-0.8); Hematocrit 42.3 % (37-53); Lymphocytes # 2.2 10^3/uL (0.8-4.8); Lymphocytes % 31.8 %; Mean Corpuscular HGB Conc 34.5 g/dL (30-55); Mean Corpuscular Hemoglobin 32.4 pg (27-33); Mean Corpuscular Volume 93.8 fl (82-101); Mean Platelet Volume 10.1 fL (7.4-10.4); Monocytes # 0.6 10^3/uL (0.2-0.9); Monocytes % 7.9 %; Neutrophils # 3.79 10^3/uL (1.8-7.7); Neutrophils % 54.7 %; Nucleated Red Blood Cells % 0 %; Platelet Count 209 10^3/cmm (157-399); Red Blood Count 4.51 10^6/uL (3.85-5.65); Red Cell Distribution Width 12.1 % (12.1-15.1); White Blood Count 6.94 10^3/uL (3.29-11.43)
[2024-03-23 22:28] LABS: Troponin(5th) Baseline 7 ng/L (0-15)
[2024-03-23 22:33] LABS: Alanine Aminotransferase 48 U/L (0-41); Albumin Level 4.6 g/dL (3.5-5.2); Alkaline Phosphatase 61 U/L (40-130); Anion Gap 14.8 (5-19); Aspartate Amino Transferase 22 U/L (0-40); Blood Urea Nitrogen 14 mg/dL (6-20); Calcium 9.3 mg/dL (8.5-10.5); Carbon Dioxide 23 mmol/L (22-29); Chloride 105 mmol/L (98-107); Creatine Phosphokinase 75 U/L (39-308); Creatinine Clr Calc Pharmacy 173.4771; Globulin 2.3 g/dL (1.3-4.6); Glomerular Filtration Rate 130.7 mL/min (90-130); Glucose 139 mg/dL (65-115); Osmolality Calculated 291 mOsm/kg (285-295); Potassium 3.8 mmol/L (3.5-5.1); Sodium 139 mmol/L (136-145); Total Bilirubin 0.4 mg/dL (0.15-1.2); Total Protein 6.9 g/dL (6.6-8.7)
[2024-03-23 23:39] VITALS: BP 169/77; PULSE 78; O2SAT 97
== END 2024-03-23 23:42 | disposition home or self-care (01) ==
PROVIDERS: Emergency Provider Emergency Medicine; PCP Family Medicine Adult Medicine
DX: R07.9 Chest pain, unspecified (principal); I10 Essential (primary) hypertension; F17.210 Nicotine dependence, cigarettes, uncomplicated
CPT/HCPCS: 71045; 80053; 82550; 84484; 85025; 93005; 99285

== ENCOUNTER 2024-03-24 01:54 | Emergency (ER) | payer MEDICARE, SELFPAY ==
--- NOTE | 2024-03-24 01:55 | ECG_ITS ---
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 Measurements Intervals [place] Rate: 79 P: 54 [place]: 151 QRS: -27 QRSD: 109 T: -22 QT: 345 QTc: 396 Interpretive Statements SINUS RHYTHM BORDERLINE LEFT AXIS DEVIATION [QRS AXIS < -20] Compared to ECG 07/26/2023 20:19:38 Intraventricular conduction delay no longer present ST (T wave) deviation no longer present Electronically Signed On 03-24-2024 20:05:34 CDT by Victor Manuel Shannon M.D. [id number]
[2024-03-24 01:56] VITALS: BP 124/88; PULSE 102; RESP 18; TEMP 36.8; O2SAT 96
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
[2024-03-24 02:19] LABS: D Dimer 0.33 ug/mLFEU (0-0.59)
[2024-03-24 02:23] LABS: Troponin(5th) Baseline 8 ng/L (0-15)
[2024-03-24 02:49] VITALS: BP 124/88; PULSE 83; O2SAT 97
== END 2024-03-24 02:31 | disposition home or self-care (01) ==
PROVIDERS: Emergency Provider Emergency Medicine; PCP Family Medicine Adult Medicine
DX: R07.89 Other chest pain (principal); I10 Essential (primary) hypertension; F17.210 Nicotine dependence, cigarettes, uncomplicated
CPT/HCPCS: 36415; 84484; 85378; 93005; 99284

== ENCOUNTER 2024-04-21 19:52 | Emergency (ER) | payer MEDICARE, SELFPAY ==
[2024-04-21 19:58] VITALS: BP 147/84; PULSE 96; RESP 20; TEMP 36.6; O2SAT 92; BMI 25.0
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
--- NOTE | 2024-04-21 20:10 | ECG_ITS ---
[facility] Test Date: 2024-04-21 Pat Name: Rakesh Mart Department: Room: Gender: Male Enroller: : 1990 Requested By: Pamella Lyons Order Number: [id number] Radha MD: BRITTANIE MENDOZA Measurements Intervals [place] Rate: 86 P: 61 [place]: 155 QRS: -22 QRSD: 109 T: 19 QT: 348 QTc: 418 Interpretive Statements SINUS RHYTHM BORDERLINE LEFT AXIS DEVIATION [QRS AXIS < -20] NONSPECIFIC ST ELEVATION [0.05+ mV ST ELEVATION] Compared to ECG 03/24/2024 01:58:17 ST (T wave) deviation now present Electronically Signed On 04-24-2024 21:04:22 CDT by BRITTANIE MENDOZA [email or web address]
[2024-04-21 20:22] LABS: Basophils # 0.1 10^3/uL (0.0-0.1); Basophils % 1.2 %; Eosinophils # 0.3 10^3/uL (0.0-0.8); Eosinophils % 4.5 %; Hematocrit 44.6 % (37-53); Lymphocytes # 2.3 10^3/uL (0.8-4.8); Lymphocytes % 30.7 %; Mean Corpuscular HGB Conc 34.3 g/dL (30-55); Mean Corpuscular Hemoglobin 31.2 pg (27-33); Mean Platelet Volume 9.7 fL (7.4-10.4); Monocytes # 0.5 10^3/uL (0.2-0.9); Monocytes % 6.9 %; Neutrophils % 56.2 %; Nucleated Red Blood Cells % 0 %; Platelet Count 240 10^3/cmm (157-399); Red Cell Distribution Width 11.6 % (12.1-15.1); White Blood Count 7.49 10^3/uL (3.29-11.43)
[2024-04-21 20:39] LABS: Alanine Aminotransferase 64 U/L (0-41); Albumin Level 4.8 g/dL (3.5-5.2); Alkaline Phosphatase 62 U/L (40-130); Anion Gap 15.6 (5-19); Aspartate Amino Transferase 30 U/L (0-40); Blood Urea Nitrogen 13 mg/dL (6-20); Calcium 9.2 mg/dL (8.5-10.5); Carbon Dioxide 28 mmol/L (22-29); Chloride 100 mmol/L (98-107); Creatinine Clr Calc Pharmacy 118.2953; Globulin 2.5 g/dL (1.3-4.6); Glomerular Filtration Rate 97.8 mL/min (90-130); Glucose 140 mg/dL (65-115); Osmolality Calculated 292 mOsm/kg (285-295); Potassium 3.6 mmol/L (3.5-5.1); Sodium 140 mmol/L (136-145); Total Bilirubin 0.4 mg/dL (0.15-1.2); Total Protein 7.3 g/dL (6.6-8.7)
[2024-04-21 20:56] VITALS: BP 132/103; PULSE 93; RESP 16; O2SAT 95
[2024-04-21 21:02] LABS: Troponin(5th) Baseline 10 ng/L (0-15)
[2024-04-21] MEDS: ketorolac 60 mg/2 mL INJ IM (21:08)
[2024-04-21 21:12] VITALS: BP 145/99; PULSE 91; RESP 16; O2SAT 94
[2024-04-21 21:26] LABS: Covid PCR NEGATIVE (Negative); Influenza A NEGATIVE (Negative); Influenza B NEGATIVE (Negative); Respiratory Syncytial Virus Ce NEGATIVE (Negative)
== END 2024-04-21 21:30 | disposition home or self-care (01) ==
PROVIDERS: Emergency Provider Emergency Medicine
DX: R07.89 Other chest pain (principal); Z87.891 Personal history of nicotine dependence; I10 Essential (primary) hypertension
CPT/HCPCS: 0241U; 36415; 80053; 84484; 85025; 93005; 96372; 99284; J1885

== ENCOUNTER 2024-04-24 18:03 | Emergency (ER) | payer MEDICARE, SELFPAY ==
[2024-04-24 18:15] VITALS: BP 138/82; PULSE 97; RESP 16; TEMP 37.2; O2SAT 98; BMI 26.6
[2024-04-24 18:21] VITALS: BP 138/82; PULSE 97; RESP 16; TEMP 37.2; O2SAT 98
--- NOTE | 2024-04-24 18:39 | ECG_ITS ---
[facility] Test Date: 2024-04-24 Pat Name: Rakesh Matr Department: Room: Gender: Male Color Depositing Machine Tender: : 1990 Requested By: Hector Fair Order Number: [id number] Radha MD: BRITTANIE MENDOZA Measurements Intervals [place] Rate: 89 P: 63 [place]: 159 QRS: -32 QRSD: 112 T: 30 QT: 368 QTc: 448 Interpretive Statements SINUS RHYTHM LEFT AXIS DEVIATION [QRS AXIS < -30] PATTERN CONSISTENT WITH PULMONARY DISEASE MODERATE INTRAVENTRICULAR CONDUCTION DELAY [110+ ms QRS DURATION] Compared to ECG 04/21/2024 20:10:27 Intraventricular conduction delay now present ST (T wave) deviation no longer present Electronically Signed On 04-24-2024 21:04:36 CDT by BRITTANIE MENDOZA [id number]
--- NOTE | 2024-04-24 18:54 | XRR_ITS ---
PROCEDURE INFORMATION: Exam: XR Chest Exam date and time: 04/24/2024 7:12 PM Age: 33 years old Clinical indication: Pain; Chest pressure; Additional info: Cp TECHNIQUE: Imaging protocol: Radiologic exam of the chest. Views: 1 view. COMPARISON: CR (CHEST, ) 03/23/2024 10:07 PM FINDINGS: Lungs: Unremarkable. No consolidation. Pleural spaces: Unremarkable. No pleural effusion. No pneumothorax. Heart/Mediastinum: Unremarkable. No cardiomegaly. Bones/joints: Unremarkable. XR/XR chest 1V portable [id number] IMPRESSION: No acute findings.
[2024-04-24 19:14] LABS: Basophils # 0.1 10^3/uL (0.0-0.1); Basophils % 0.6 %; Eosinophils # 0.2 10^3/uL (0.0-0.8); Eosinophils % 1.6 %; Hematocrit 47.2 % (37-53); Lymphocytes # 1.9 10^3/uL (0.8-4.8); Lymphocytes % 19.5 %; Mean Corpuscular Hemoglobin 31.4 pg (27-33); Mean Corpuscular Volume 89.7 fl (82-101); Mean Platelet Volume 9.8 fL (7.4-10.4); Monocytes # 0.6 10^3/uL (0.2-0.9); Monocytes % 6.2 %; Neutrophils # 6.85 10^3/uL (1.8-7.7); Neutrophils % 71.7 %; Nucleated Red Blood Cells % 0 %; Platelet Count 249 10^3/cmm (157-399); Red Blood Count 5.26 10^6/uL (3.85-5.65); Red Cell Distribution Width 11.4 % (12.1-15.1); White Blood Count 9.55 10^3/uL (3.29-11.43)
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
[2024-04-24 19:31] LABS: Troponin(5th) Baseline 8 ng/L (0-15)
[2024-04-24 19:43] LABS: Alanine Aminotransferase 55 U/L (0-41); Albumin Level 5.2 g/dL (3.5-5.2); Alkaline Phosphatase 66 U/L (40-130); Anion Gap 15.7 (5-19); Aspartate Amino Transferase 24 U/L (0-40); Blood Urea Nitrogen 15 mg/dL (6-20); Calcium 9.7 mg/dL (8.5-10.5); Carbon Dioxide 26 mmol/L (22-29); Chloride 101 mmol/L (98-107); Creatinine Clr Calc Pharmacy 121.3193; Globulin 2.7 g/dL (1.3-4.6); Glomerular Filtration Rate 97.8 mL/min (90-130); Glucose 91 mg/dL (65-115); Osmolality Calculated 288 mOsm/kg (285-295); Potassium 3.7 mmol/L (3.5-5.1); Sodium 139 mmol/L (136-145); Total Bilirubin 0.5 mg/dL (0.15-1.2); Total Protein 7.9 g/dL (6.6-8.7)
--- NOTE | 2024-04-24 19:54 | PC.NURSE ---
pt requested a sandwich because he missed sauer at the long-term. pediatric physician assistant said he was not allowed to eat anything. RN spoke to provider, he said to give him a sandwich before discharge.
[2024-04-24 19:56] VITALS: BP 152/93; PULSE 95; O2SAT 95
== END 2024-04-24 19:57 | disposition home or self-care (01) ==
PROVIDERS: Emergency Provider Physician Assistant; PCP Family Medicine Adult Medicine
DX: R07.89 Other chest pain (principal); Z79.899 Other long term (current) drug therapy
CPT/HCPCS: 36415; 71045; 80053; 84484; 85025; 93005; 99285

== ENCOUNTER 2024-04-25 20:15 | Emergency (ER) | payer MEDICARE, SELFPAY ==
[2024-04-25] VITALS (7 sets, daily range): BP systolic 140–155; BP diastolic 96–128; PULSE 73–104; RESP 17–18; TEMP 36.9; O2SAT 98–100; BMI 30.5
--- NOTE | 2024-04-25 20:20 | ECG_ITS ---
[facility] Pat Name: Rakesh Mart Department: Room: Gender: Male Hepatology Physician: : 1990 Requested By: Nazario Thurman Order Number: [id number] Radha MD: Victor Manuel Shannon M.D. Measurements Intervals [place] Rate: 97 P: 69 [place]: 140 QRS: -33 QRSD: 118 T: 25 QT: 341 QTc: 434 Interpretive Statements SINUS RHYTHM LEFT AXIS DEVIATION [QRS AXIS < -30] S1-S2-S3 PATTERN, CONSISTENT WITH PULMONARY DISEASE, RVH, OR NORMAL VARIANT PATTERN CONSISTENT WITH PULMONARY DISEASE MODERATE INTRAVENTRICULAR CONDUCTION DELAY [110+ ms QRS DURATION] Compared to ECG 04/24/2024 18:55:21 Right ventricular hypertrophy now present Electronically Signed On 04-26-2024 22:59:06 CDT by Victor Manuel Shannon M.D. [id number]
--- NOTE | 2024-04-25 20:38 | XRR_ITS ---
PROCEDURE INFORMATION: Exam: XR Chest Exam date and time: 04/25/2024 9:12 PM Age: 33 years old Clinical indication: Pain; Chest pressure; Additional info: Chest pain TECHNIQUE: Imaging protocol: Radiologic exam of the chest. Views: 1 view. COMPARISON: CR (CHEST, ) 04/24/2024 7:12 PM FINDINGS: Lungs: Unremarkable. No consolidation. Pleural spaces: Unremarkable. No pleural effusion. No pneumothorax. Heart/Mediastinum: Unremarkable. No cardiomegaly. Bones/joints: Unremarkable. XR/XR chest 1V portable [id number] IMPRESSION: No acute cardiopulmonary process.
[2024-04-25] MEDS: ketorolac 60 mg/2 mL INJ IM (20:55)
[2024-04-25 21:07] LABS: Basophils # 0.1 10^3/uL (0.0-0.1); Basophils % 1.1 %; Eosinophils # 0.2 10^3/uL (0.0-0.8); Eosinophils % 2.5 %; Hematocrit 47.1 % (37-53); Lymphocytes # 2.3 10^3/uL (0.8-4.8); Lymphocytes % 35.6 %; Mean Corpuscular Hemoglobin 30.8 pg (27-33); Mean Corpuscular Volume 90.8 fl (82-101); Mean Platelet Volume 9.8 fL (7.4-10.4); Monocytes # 0.5 10^3/uL (0.2-0.9); Monocytes % 7.2 %; Neutrophils # 3.39 10^3/uL (1.8-7.7); Neutrophils % 53.1 %; Nucleated Red Blood Cells % 0 %; Platelet Count 254 10^3/cmm (157-399); Red Blood Count 5.19 10^6/uL (3.85-5.65); Red Cell Distribution Width 11.6 % (12.1-15.1); White Blood Count 6.38 10^3/uL (3.29-11.43)
[2024-04-25 21:28] LABS: Troponin(5th) Baseline 7 ng/L (0-15)
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
[2024-04-25 21:34] LABS: Alanine Aminotransferase 44 U/L (0-41); Alkaline Phosphatase 59 U/L (40-130); Anion Gap 17.7 (5-19); Aspartate Amino Transferase 18 U/L (0-40); Blood Urea Nitrogen 17 mg/dL (6-20); Calcium 9.6 mg/dL (8.5-10.5); Carbon Dioxide 27 mmol/L (22-29); Chloride 103 mmol/L (98-107); Creatinine Clr Calc Pharmacy 129.1813; Globulin 2.4 g/dL (1.3-4.6); Glomerular Filtration Rate 97.8 mL/min (90-130); Glucose 137 mg/dL (65-115); Osmolality Calculated 302 mOsm/kg (285-295); Potassium 3.7 mmol/L (3.5-5.1); Sodium 144 mmol/L (136-145); Total Bilirubin 0.3 mg/dL (0.15-1.2); Total Protein 7.4 g/dL (6.6-8.7)
[2024-04-25 22:07] LABS: Bilirubin Urine Negative (Negative); Blood Urine Negative (Negative); Glucose Urine UA Negative (Normal); Ketones Urine Negative (Negative); Leukocyte Esterase Urine Negative (Negative); Nitrate Urine Negative (Negative); Protein Urine Negative (Negative); Specific Gravity, Urine 1.019 (1.005-1.030); Urine Appearance Turbid (CLEAR); Urine Color Yellow (Yellow); pH Urine 7.5 (5-7)
[2024-04-25 22:11] LABS: Add Urine Microscopic? YES; Bacteria Urine None Seen /hpf; Hyaline Casts Urine 0-4 /lpf; RBC Urine 0-2 /hpf (0-2); Squamous Epithelial Cell Urine 0-5 /hpf (0-5); WBC Urine 0-5 /hpf (0-5)
== END 2024-04-25 22:27 | disposition home or self-care (01) ==
PROVIDERS: Emergency Provider Emergency Medicine; PCP Family Medicine Adult Medicine
DX: R07.89 Other chest pain (principal); I10 Essential (primary) hypertension
CPT/HCPCS: 36415; 71045; 80053; 81001; 84484; 85025; 93005; 96372; 99285; J1885

== ENCOUNTER 2024-04-26 00:50 | Emergency (ER) | payer MEDICARE, SELFPAY ==
[2024-04-26 00:53] VITALS: BP 153/102; PULSE 112; RESP 18; TEMP 36.8; O2SAT 97; BMI 30.5
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
[2024-04-26] MEDS: apixaban 5 mg Tablet 10 MG PO (01:07)
[2024-04-26 02:19] VITALS: BP 153/102; PULSE 93; O2SAT 99
== END 2024-04-26 02:20 | disposition home or self-care (01) ==
PROVIDERS: Emergency Provider Emergency Medicine; PCP Family Medicine Adult Medicine
DX: M79.605 Pain in left leg (principal); R07.89 Other chest pain; Z86.718 Personal history of other venous thrombosis and embolism
CPT/HCPCS: 99283

== ENCOUNTER 2024-05-05 16:18 | Emergency (ER) | payer MEDICARE, SELFPAY ==
[2024-05-05 16:20] VITALS: BP 158/84; PULSE 89; RESP 17; TEMP 36.8; O2SAT 93; BMI 28.1
--- NOTE | 2024-05-05 17:11 | CTR_ITS ---
PROCEDURE INFORMATION: Exam: CT Abdomen And Pelvis Without Contrast Exam date and time: 05/05/2024 5:34 PM Age: 34 years old Clinical indication: Abdominal pain; Flank; Left; Additional info: Left flank pain TECHNIQUE: Imaging protocol: Computed tomography of the abdomen and pelvis without contrast. Axial, coronal and sagittal reformatted images were created and reviewed. Radiation optimization: All CT scans at this facility use at least one of these dose optimization techniques: automated exposure control; mA and/or kV adjustment per patient size (includes targeted exams where dose is matched to clinical indication); or iterative reconstruction. COMPARISON: CT angio chest PE protcl [id number] 10/16/2020 9:46 AM RADIATION DOSE METRICS: Total DLP (mGy-cm): 770.69 FINDINGS: Liver: Mild hepatomegaly. Gallbladder and biliary ducts: No radiodense gallstones. No biliary ductal dilatation. Pancreas: Unremarkable. Spleen: Unremarkable. Adrenal glands: Normal. No mass. Kidneys and ureters: No mass. No radiodense calculi. No hydronephrosis. Stomach and bowel: No bowel wall thickening. No obstruction. No pneumatosis. Appendix: Normal. Intraperitoneal space: No free fluid. No organized fluid collection. No free air. Vasculature: Unremarkable. No aneurysm. Lymph nodes: No pathologically enlarged lymph nodes. Urinary bladder: Unremarkable as visualized. Reproductive: Unremarkable. Bones/joints: No acute osseous abnormality. Mild degenerative changes. Soft tissues: Unremarkable. CT/CT abdomen pelvis wo con [id number] IMPRESSION: 1. Limited noncontrast examination without CT evidence of acute intra-abdominal or pelvic pathology. 2. Additional findings, as above.
[2024-05-05 17:32] LABS: Basophils # 0.1 10^3/uL (0.0-0.1); Basophils % 1.7 %; Eosinophils # 0.3 10^3/uL (0.0-0.8); Eosinophils % 5.6 %; Hematocrit 45.3 % (37-53); Lymphocytes # 2.3 10^3/uL (0.8-4.8); Lymphocytes % 38.4 %; Mean Corpuscular HGB Conc 34.4 g/dL (30-55); Mean Corpuscular Hemoglobin 31.3 pg (27-33); Mean Platelet Volume 10.2 fL (7.4-10.4); Monocytes # 0.5 10^3/uL (0.2-0.9); Monocytes % 8.6 %; Neutrophils % 45.4 %; Nucleated Red Blood Cells % 0 %; Platelet Count 246 10^3/cmm (157-399); Red Blood Count 4.98 10^6/uL (3.85-5.65); Red Cell Distribution Width 11.7 % (12.1-15.1); White Blood Count 5.94 10^3/uL (3.29-11.43)
[2024-05-05 17:55] LABS: Alanine Aminotransferase 33 U/L (0-41); Albumin Level 4.9 g/dL (3.5-5.2); Alkaline Phosphatase 63 U/L (40-130); Aspartate Amino Transferase 18 U/L (0-40); Blood Urea Nitrogen 10 mg/dL (6-20); Calcium 8.8 mg/dL (8.5-10.5); Carbon Dioxide 27 mmol/L (22-29); Chloride 102 mmol/L (98-107); Creatinine Clr Calc Pharmacy 110.8728; Globulin 1.9 g/dL (1.3-4.6); Glomerular Filtration Rate 86.1 mL/min (90-130); Glucose 120 mg/dL (65-115); Osmolality Calculated 288 mOsm/kg (285-295); Sodium 139 mmol/L (136-145); Total Bilirubin 0.3 mg/dL (0.15-1.2); Total Protein 6.8 g/dL (6.6-8.7)
[2024-05-05 18:00] LABS: Anion Gap 13.6 (5-19); Potassium 3.6 mmol/L (3.5-5.1)
[2024-05-05] MEDS: sodium chloride 0.9% 1,000 ML 999 ML IV (18:00)
[2024-05-05] MEDS: ketorolac 30 mg/mL INJ IVP (18:01)
[2024-05-05 18:16] LABS: Bilirubin Urine Negative (Negative); Blood Urine Negative (Negative); Glucose Urine UA Negative (Normal); Ketones Urine Negative (Negative); Leukocyte Esterase Urine Negative (Negative); Nitrate Urine Negative (Negative); Protein Urine Negative (Negative); Specific Gravity, Urine 1.007 (1.005-1.030); Urine Appearance Clear (CLEAR); Urine Color Yellow (Yellow); pH Urine 6.5 (5-7)
[2024-05-05 18:21] LABS: Add Urine Microscopic? YES; Bacteria Urine None Seen /hpf; Hyaline Casts Urine 0-4 /lpf; RBC Urine 0-2 /hpf (0-2); Squamous Epithelial Cell Urine 0-5 /hpf (0-5); WBC Urine 0-5 /hpf (0-5)
[2024-05-05 18:48] VITALS: BP 126/84; PULSE 75; RESP 16; O2SAT 100
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
== END 2024-05-05 18:50 | disposition home or self-care (01) ==
PROVIDERS: Emergency Provider Emergency Medicine; PCP Family Medicine Adult Medicine
DX: M54.6 Pain in thoracic spine (principal); Z79.82 Long term (current) use of aspirin; Z79.01 Long term (current) use of anticoagulants; Z87.891 Personal history of nicotine dependence; I10 Essential (primary) hypertension
CPT/HCPCS: 36415; 74176; 80053; 81001; 85025; 96374; 99284; J1885; J7030

== ENCOUNTER 2024-05-10 12:45 | Emergency (ER) | payer MEDICARE, SELFPAY ==
[2024-05-10] VITALS (38 sets, daily range): BP systolic 116–133; BP diastolic 83–94; PULSE 60–92; RESP 11–24; TEMP 36.8; O2SAT 94–100
--- NOTE | 2024-05-10 12:49 | ECG_ITS ---
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 Measurements Intervals [place] Rate: 77 P: 55 MO: 155 QRS: -13 QRSD: 110 T: 6 QT: 386 QTc: 439 Interpretive Statements SINUS RHYTHM INCOMPLETE RIGHT BUNDLE BRANCH BLOCK [90+ ms QRS DURATION, TERMINAL R IN V1/V2, 40+ ms S IN I/aVL/V4/V5/V6] Compared to ECG 04/25/2024 20:20:16 Incomplete right bundle-branch block now present Left-axis deviation no longer present Right ventricular hypertrophy no longer present Intraventricular conduction delay no longer present Electronically Signed On 05-10-2024 21:58:25 BUILD AND DEPLOYMENT ENGINEER by Victor Manuel Shannon M.D. [id number]
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
--- NOTE | 2024-05-10 13:18 | XR_ITS ---
WS: [id number] XR chest 1V 86802 REASON FOR EXAM: CP FINDINGS: Chest is stable compared to 04/25/2024. There is mild tortuosity of the thoracic aorta. There is mild cardiomegaly. Calcified granulomas disease in both hemithoraces. No acute pulmonary parenchymal or pleural abnormality. Mild levoscoliosis of the mid and upper thoracic spine with moderate degenerative spondylosis. XR/XR chest 1V 89915 IMPRESSION: No acute abnormality. Stable chest with mild cardiomegaly.
[2024-05-10 14:43] LABS: Basophils # 0.1 10^3/uL (0.0-0.1); Basophils % 1.2 %; Eosinophils # 0.3 10^3/uL (0.0-0.8); Eosinophils % 4.5 %; Hematocrit 46.4 % (37-53); Lymphocytes # 2.1 10^3/uL (0.8-4.8); Lymphocytes % 29.6 %; Mean Corpuscular HGB Conc 34.9 g/dL (30-55); Mean Corpuscular Hemoglobin 32.4 pg (27-33); Mean Corpuscular Volume 92.8 fl (82-101); Mean Platelet Volume 9.9 fL (7.4-10.4); Monocytes # 0.5 10^3/uL (0.2-0.9); Monocytes % 7.4 %; Neutrophils # 3.95 10^3/uL (1.8-7.7); Neutrophils % 56.9 %; Nucleated Red Blood Cells % 0 %; Platelet Count 222 10^3/cmm (157-399); Red Cell Distribution Width 11.8 % (12.1-15.1); White Blood Count 6.93 10^3/uL (3.29-11.43)
[2024-05-10 15:05] LABS: Alanine Aminotransferase 25 U/L (0-41); Albumin Level 5.2 g/dL (3.5-5.2); Alkaline Phosphatase 60 U/L (40-130); Aspartate Amino Transferase 17 U/L (0-40); Blood Urea Nitrogen 15 mg/dL (6-20); Calcium 9.4 mg/dL (8.5-10.5); Carbon Dioxide 26 mmol/L (22-29); Chloride 103 mmol/L (98-107); Globulin 1.7 g/dL (1.3-4.6); Glomerular Filtration Rate 86.1 mL/min (90-130); Glucose 96 mg/dL (65-115); Lipase 25 U/L (13-60); Osmolality Calculated 293 mOsm/kg (285-295); Sodium 141 mmol/L (136-145); Total Bilirubin 0.5 mg/dL (0.15-1.2); Total Protein 6.9 g/dL (6.6-8.7)
[2024-05-10 15:06] LABS: Troponin(5th) Baseline < 6 ng/L (0-15)
--- NOTE | 2024-05-10 15:19 | ECG_ITS ---
[employer] Test Date: 2024-05-10 Pat Name: Rakesh Mart Department: Room: Gender: Male Is Manager: : 1990 Requested By: Lawanda Ordonez Order Number: [id number] Reading MD: BRITTANIE MENDOZA Measurements Intervals [place] Rate: 72 P: 64 IA: 166 QRS: -17 QRSD: 110 T: 4 QT: 384 QTc: 421 Interpretive Statements SINUS RHYTHM SEPTAL MYOCARDIAL INFARCTION , OF INDETERMINATE AGE [40+ ms Q WAVE IN V1/V2] Compared to ECG 05/10/2024 12:49:43 Myocardial infarct finding now present Incomplete right bundle-branch block no longer present Electronically Signed On 05-11-2024 00:31:01 DYE LINE OPERATOR by BRITTANIE MENDOZA [id number]
[2024-05-10 15:30] LABS: Bilirubin Urine Negative (Negative); Blood Urine Negative (Negative); Glucose Urine UA Negative (Normal); Ketones Urine Negative (Negative); Leukocyte Esterase Urine Negative (Negative); Nitrate Urine Negative (Negative); Protein Urine Negative (Negative); Specific Gravity, Urine 1.017 (1.005-1.030); Urine Appearance Clear (CLEAR); Urine Color Yellow (Yellow); Urobilinogen Urine 0.2 mg/dL (Negative); pH Urine 6.5 (5-7)
[2024-05-10 15:34] LABS: Amphetamines Screen Urine Negative (Negative); Barbiturates Screen Urine Negative (Negative); Benzodiazepines Screen Urine Negative (Negative); Cocaine Screen Urine Negative (Negative); Opiate Screen Urine Negative (Negative); PCP Screen Urine Negative (Negative); THC Screen Urine Negative (Negative)
[2024-05-10 15:36] LABS: Add Urine Microscopic? YES; Bacteria Urine None Seen /hpf; Hyaline Casts Urine 0-4 /lpf; RBC Urine 0-2 /hpf (0-2); Squamous Epithelial Cell Urine 0-5 /hpf (0-5); WBC Urine 0-5 /hpf (0-5)
[2024-05-10 16:20] LABS: Troponin 5 2HR 8.61 ng/L (0-15); Troponin 5 2HR Delta 2.61001 ABS# (0-10)
== END 2024-05-10 16:20 ==
PROVIDERS: Emergency Provider Physician Assistant; PCP Family Medicine Adult Medicine
DX: R07.89 Other chest pain (principal); I82.409 Acute embolism and thrombosis of unspecified deep veins of unspecified lower extremity; I10 Essential (primary) hypertension; Z86.711 Personal history of pulmonary embolism; Z79.82 Long term (current) use of aspirin; Z79.01 Long term (current) use of anticoagulants
CPT/HCPCS: 36415; 71045; 80053; 80306; 81001; 83690; 84484; 85025; 93005; 99285

== ENCOUNTER 2024-05-24 20:46 | Emergency (ER) | payer MEDICARE, SELFPAY ==
[2024-05-24 20:50] VITALS: BP 132/98; PULSE 105; RESP 20; TEMP 36.9; O2SAT 96; BMI 29.6
--- NOTE | 2024-05-24 20:53 | ECG_ITS ---
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 Measurements Intervals [place] Rate: 104 P: 57 AL: 122 QRS: -12 QRSD: 108 T: 40 QT: 327 QTc: 431 Interpretive Statements SINUS TACHYCARDIA Compared to ECG 05/10/2024 14:28:38 Sinus rhythm no longer present Myocardial infarct finding no longer present Electronically Signed On 05-26-2024 10:26:59 CONTINUOUS IMPROVEMENT INTERN by Gideon Rojas M.D. [id number]
[2024-05-24 21:02] LABS: Basophils # 0.1 10^3/uL (0.0-0.1); Eosinophils # 0.3 10^3/uL (0.0-0.8); Eosinophils % 4.3 %; Hematocrit 45.1 % (37-53); Lymphocytes # 1.7 10^3/uL (0.8-4.8); Lymphocytes % 22.2 %; Mean Corpuscular HGB Conc 35.9 g/dL (30-55); Mean Corpuscular Hemoglobin 32.5 pg (27-33); Mean Corpuscular Volume 90.6 fl (82-101); Mean Platelet Volume 10.7 fL (7.4-10.4); Monocytes # 0.4 10^3/uL (0.2-0.9); Monocytes % 5.5 %; Neutrophils # 5.09 10^3/uL (1.8-7.7); Neutrophils % 66.6 %; Nucleated Red Blood Cells % 0 %; Platelet Count 263 10^3/cmm (157-399); Red Blood Count 4.98 10^6/uL (3.85-5.65); Red Cell Distribution Width 12.1 % (12.1-15.1); White Blood Count 7.65 10^3/uL (3.29-11.43)
[2024-05-24 21:26] LABS: Slide Review Slide Review Perform
[2024-05-24 21:52] VITALS: BP 135/81; PULSE 98; RESP 16; O2SAT 95
[2024-05-24 22:35] LABS: Troponin(5th) Baseline 7 ng/L (0-15)
[2024-05-24 22:39] LABS: Anion Gap 17.9 (5-19); Blood Urea Nitrogen 14 mg/dL (6-20); Calcium 10.1 mg/dL (8.5-10.5); Carbon Dioxide 26 mmol/L (22-29); Chloride 102 mmol/L (98-107); Creatinine Clr Calc Pharmacy 141.9615; Glomerular Filtration Rate 111.3 mL/min (90-130); Glucose 135 mg/dL (65-115); Osmolality Calculated 297 mOsm/kg (285-295); Potassium 3.9 mmol/L (3.5-5.1); Sodium 142 mmol/L (136-145)
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
[2024-05-24 23:42] VITALS: BP 131/79; PULSE 87; RESP 16; O2SAT 96
== END 2024-05-24 23:43 | disposition home or self-care (01) ==
PROVIDERS: Emergency Provider Emergency Medicine
DX: R07.9 Chest pain, unspecified (principal); Z79.01 Long term (current) use of anticoagulants; Z87.891 Personal history of nicotine dependence; I10 Essential (primary) hypertension; Z86.711 Personal history of pulmonary embolism
CPT/HCPCS: 36415; 80048; 84484; 85025; 93005; 99285

== ENCOUNTER 2024-06-17 04:03 | Emergency (ER) | payer MEDICARE, SELFPAY ==
--- NOTE | 2024-06-17 04:04 | XRR_ITS ---
PROCEDURE INFORMATION: Exam: XR Chest Exam date and time: 06/17/2024 4:05 AM Age: 34 years old Clinical indication: Chest pressure; Patient HX: C/O chest pain; Additional info: Cp TECHNIQUE: Imaging protocol: Radiologic exam of the chest. Views: 1 view. COMPARISON: CR XR chest 1V [id number] 05/10/2024 1:22 PM FINDINGS: Lungs: Unremarkable. No consolidation. Pleural spaces: Unremarkable. No pleural effusion. No pneumothorax. Heart/Mediastinum: Unremarkable. No progressive cardiomegaly. Bones/joints: Unremarkable. XR/XR chest 1V portable [id number] IMPRESSION: No acute findings.
--- NOTE | 2024-06-17 04:07 | ECG_ITS ---
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 Measurements Intervals [place] Rate: 83 P: 55 [place]: 147 QRS: -21 QRSD: 114 T: 16 QT: 371 QTc: 438 Interpretive Statements SINUS RHYTHM BORDERLINE LEFT AXIS DEVIATION [QRS AXIS < -20] MODERATE INTRAVENTRICULAR CONDUCTION DELAY [110+ ms QRS DURATION] Compared to ECG 05/24/2024 20:58:57 Intraventricular conduction delay now present Sinus tachycardia no longer present Electronically Signed On 06-17-2024 22:42:01 ROOFER GYPSUM by Victor Manuel Shannon M.D. [id number]
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
[2024-06-17 04:10] VITALS: BP 147/87; PULSE 85; RESP 19; TEMP 36.6; O2SAT 100; BMI 30.4
[2024-06-17 04:29] LABS: Rapid Strep A Test Negative (Negative)
[2024-06-17 04:31] LABS: Basophils # 0.1 10^3/uL (0.0-0.1); Basophils % 1.5 %; Eosinophils # 0.4 10^3/uL (0.0-0.8); Eosinophils % 5.2 %; Hematocrit 46.9 % (37-53); Lymphocytes # 2.4 10^3/uL (0.8-4.8); Lymphocytes % 35.1 %; Mean Corpuscular HGB Conc 33.7 g/dL (30-55); Mean Corpuscular Hemoglobin 31.5 pg (27-33); Mean Corpuscular Volume 93.6 fl (82-101); Mean Platelet Volume 9.7 fL (7.4-10.4); Monocytes # 0.7 10^3/uL (0.2-0.9); Neutrophils # 3.27 10^3/uL (1.8-7.7); Neutrophils % 47.6 %; Nucleated Red Blood Cells % 0 %; Platelet Count 260 10^3/cmm (157-399); Red Blood Count 5.01 10^6/uL (3.85-5.65); Red Cell Distribution Width 12.4 % (12.1-15.1); White Blood Count 6.87 10^3/uL (3.29-11.43)
[2024-06-17 04:40] LABS: Troponin(5th) Baseline 9 ng/L (0-15)
[2024-06-17 04:47] LABS: Anion Gap 17.4 (5-19); Blood Urea Nitrogen 11 mg/dL (6-20); Carbon Dioxide 28 mmol/L (22-29); Chloride 102 mmol/L (98-107); Creatinine Clr Calc Pharmacy 127.6853; Glomerular Filtration Rate 97.2 mL/min (90-130); Glucose 110 mg/dL (65-115); Osmolality Calculated 298 mOsm/kg (285-295); Potassium 3.4 mmol/L (3.5-5.1); Sodium 144 mmol/L (136-145)
[2024-06-17 05:13] VITALS: BP 125/85; PULSE 80; O2SAT 99
== END 2024-06-17 05:49 | disposition home or self-care (01) ==
PROVIDERS: Emergency Provider Emergency Medicine
DX: R07.9 Chest pain, unspecified (principal); J02.9 Acute pharyngitis, unspecified; Z79.01 Long term (current) use of anticoagulants; Z79.82 Long term (current) use of aspirin; Z87.891 Personal history of nicotine dependence; Z86.711 Personal history of pulmonary embolism; I10 Essential (primary) hypertension
CPT/HCPCS: 36415; 71045; 80048; 84484; 85025; 87081; 87880; 93005; 99285